=== PATIENT | male | born 1960 | race Caucasian/White ===

== ENCOUNTER 2016-09-29 16:19 | Emergency (ER) | payer MEDICARE ==
[2016-09-29 16:59] LABS: BASOPHILS 0.1 % (0.0-2.0); EOSINOPHILS 0.9 % (0-7); HEMATOCRIT 48.7 % (42.0-54.0); HEMOGLOBIN 16.6 g/dL (13.5-17.5); IMMATURE GRANULOCYTES 0.3 % (0-5); MCH 32.7 pg (26.0-34.0); MCHC 34.1 g/dL (31.0-37.0); MCV 96.1 fL (80.0-100.0); MEAN PLATELET VOLUME 9.7 fL (7.4-10.4); MONOCYTES 4.6 % (2-11); NEUTROPHILS 76.1 % (40-80); PLATELET COUNT 211 10x3/uL (130-400); RBC 5.07 10x6/uL (4.20-6.10); RDW 15.9 % (11.5-14.5); WBC 7.5 10x3/uL (4.8-10.8)
[2016-09-29 17:23] LABS: ALBUMIN 3.4 g/dL (3.4-5.0); ALKALINE PHOSPHATASE 96 U/L (46-116); ALT (SGPT) 14 U/L (10-68); BILIRUBIN - TOTAL 0.43 mg/dL (0.2-1.3); CALC OSMOLALITY 266 mosm/kg (275-300); CALCIUM 9.1 mg/dL (8.5-10.1); CARBON DIOXIDE 25.9 mmol/L (21.0-32.0); CHLORIDE - SERUM 96 mmol/L (98-107); CREATININE - SERUM 1.2 mg/dL (0.6-1.3); POTASSIUM - SERUM 4.2 mmol/L (3.5-5.1); PROTEIN - SERUM 7.4 g/dL (6.4-8.2); SODIUM 133 mmol/L (136-145); UREA NITROGEN 5 mg/dL (7-18); eGFR NON AFRICAN AMERICAN 66 mL/min (90-120)
[2016-09-29 17:31] LABS: GLUCOSE 177 mg/dL (74-106)
[2016-09-29 17:34] LABS: CHOL - HDL RATIO 5.2 ratio (2.3-4.9); CHOLESTEROL, TOTAL 165 mg/dL (0-200); CKMB 1.4 U/L (0.0-3.6); CREATINE KINASE 232 UL (21-232); HDL CHOLESTEROL 32 mg/dL (32-96); LDL CHOLESTEROL 107 mg/dL (0-100); LDL-HDL RATIO 3.3 ratio (1.5-3.5); TRIGLYCERIDE 134 mg/dL (30-200)
[2016-09-29 17:43] LABS: TROPONIN-I < 0.017 ng/mL (0.000-0.060)
== END 2016-09-29 18:15 | disposition home or self-care (01) ==
LOC: D.ER 16:19
PROVIDERS: Family Medicine
DX: R07.9 Chest pain, unspecified (principal); I10 Essential (primary) hypertension; E11.9 Type 2 diabetes mellitus without complications; F31.9 Bipolar disorder, unspecified

== ENCOUNTER 2016-10-12 09:45 | Emergency (ER) | payer MEDICARE ==
[2016-10-12 10:28] LABS: BASOPHILS 0.2 % (0.0-2.0); EOSINOPHILS 0.6 % (0-7); HEMATOCRIT 51.2 % (42.0-54.0); HEMOGLOBIN 17.7 g/dL (13.5-17.5); IMMATURE GRANULOCYTES 0.2 % (0-5); LYMPHOCYTES 13.8 % (15-50); MCH 32.8 pg (26.0-34.0); MCHC 34.6 g/dL (31.0-37.0); MEAN PLATELET VOLUME 9.4 fL (7.4-10.4); MONOCYTES 6.8 % (2-11); NEUTROPHILS 78.4 % (40-80); RBC 5.39 10x6/uL (4.20-6.10); RDW 15.5 % (11.5-14.5); WBC 12.1 10x3/uL (4.8-10.8)
[2016-10-12 10:29] LABS: PLATELET COUNT 265 10x3/uL (130-400)
[2016-10-12 10:47] LABS: ALBUMIN 3.4 g/dL (3.4-5.0); ALKALINE PHOSPHATASE 101 U/L (46-116); ALT (SGPT) 15 U/L (10-68); BILIRUBIN - TOTAL 0.47 mg/dL (0.2-1.3); CALC OSMOLALITY 262 mosm/kg (275-300); CALCIUM 9.4 mg/dL (8.5-10.1); CARBON DIOXIDE 25.3 mmol/L (21.0-32.0); CHLORIDE - SERUM 98 mmol/L (98-107); CREATININE - SERUM 1.2 mg/dL (0.6-1.3); POTASSIUM - SERUM 4.1 mmol/L (3.5-5.1); PROTEIN - SERUM 7.5 g/dL (6.4-8.2); SODIUM 132 mmol/L (136-145); UREA NITROGEN 5 mg/dL (7-18); eGFR NON AFRICAN AMERICAN 66 mL/min (90-120)
[2016-10-12 10:50] LABS: GLUCOSE 117 mg/dL (74-106)
[2016-10-12 11:03] LABS: CHOL - HDL RATIO 6.6 ratio (2.3-4.9); CHOLESTEROL, TOTAL 171 mg/dL (0-200); CREATINE KINASE 245 UL (21-232); HDL CHOLESTEROL 26 mg/dL (32-96); LDL CHOLESTEROL 94 mg/dL (0-100); LDL-HDL RATIO 3.6 ratio (1.5-3.5); TRIGLYCERIDE 258 mg/dL (30-200)
[2016-10-12 11:10] LABS: TROPONIN-I < 0.017 ng/mL (0.000-0.060)
[2016-10-12 12:01] LABS: MAGNESIUM - SERUM 1.7 mg/dL (1.8-2.4)
== END 2016-10-12 14:30 | disposition home or self-care (01) ==
LOC: D.ER 09:45
PROVIDERS: Emergency Medicine
DX: E83.42 Hypomagnesemia (principal); R07.9 Chest pain, unspecified; M51.26 Other intervertebral disc displacement, lumbar region; I10 Essential (primary) hypertension; F31.9 Bipolar disorder, unspecified; I25.810 Atherosclerosis of coronary artery bypass graft(s) without angina pectoris; F17.200 Nicotine dependence, unspecified, uncomplicated

== ENCOUNTER 2016-10-23 12:06 | Emergency (ER) | payer MEDICARE | END 2016-10-23 13:12 | disposition home or self-care (01) | LOC: D.ER 12:06 | DX: K02.9 Dental caries, unspecified (principal); K08.89 Other specified disorders of teeth and supporting structures; I25.10 Atherosclerotic heart disease of native coronary artery without angina pectoris; E11.9 Type 2 diabetes mellitus without complications; I10 Essential (primary) hypertension; E83.42 Hypomagnesemia; F17.200 Nicotine dependence, unspecified, uncomplicated ==

== ENCOUNTER 2016-10-24 06:50 | Emergency (ER) | payer MEDICARE | END 2016-10-24 07:40 | disposition home or self-care (01) | LOC: D.ER 06:50 | DX: K08.89 Other specified disorders of teeth and supporting structures (principal); E11.9 Type 2 diabetes mellitus without complications; I10 Essential (primary) hypertension; E83.42 Hypomagnesemia ==

== ENCOUNTER 2016-10-28 02:51 | Emergency (ER) | payer MEDICARE | END 2016-10-28 05:30 | disposition home or self-care (01) | LOC: D.ER 02:51 | DX: I10 Essential (primary) hypertension (principal); E11.9 Type 2 diabetes mellitus without complications; F17.200 Nicotine dependence, unspecified, uncomplicated ==

== ENCOUNTER 2016-11-21 08:08 | Emergency (ER) | payer MEDICARE | END 2016-11-21 11:18 | disposition home or self-care (01) | LOC: D.ER 08:08 | DX: L03.116 Cellulitis of left lower limb (principal); M79.672 Pain in left foot; I10 Essential (primary) hypertension ==

== ENCOUNTER 2016-12-05 10:47 | Emergency (ER) | payer MEDICARE ==
[2016-12-05 11:41] LABS: BASOPHILS 0.2 % (0.0-2.0); EOSINOPHILS 0.6 % (0-7); HEMOGLOBIN 18.9 g/dL (13.5-17.5); IMMATURE GRANULOCYTES 0.1 % (0-5); LYMPHOCYTES 18.9 % (15-50); MCH 34.4 pg (26.0-34.0); MCHC 35.7 g/dL (31.0-37.0); MCV 96.4 fL (80.0-100.0); MEAN PLATELET VOLUME 10.3 fL (7.4-10.4); MONOCYTES 7.5 % (2-11); NEUTROPHILS 72.7 % (40-80); PLATELET COUNT 229 10x3/uL (130-400); RDW 17.2 % (11.5-14.5); WBC 8.8 10x3/uL (4.8-10.8)
[2016-12-05 11:58] LABS: ALBUMIN 3.8 g/dL (3.4-5.0); ALKALINE PHOSPHATASE 135 U/L (46-116); ALT (SGPT) 22 U/L (10-68); BILIRUBIN - TOTAL 0.82 mg/dL (0.2-1.3); CALC OSMOLALITY 271 mosm/kg (275-300); CALCIUM 8.6 mg/dL (8.5-10.1); CARBON DIOXIDE 27.6 mmol/L (21.0-32.0); CHLORIDE - SERUM 99 mmol/L (98-107); GLUCOSE 109 mg/dL (74-106); POTASSIUM - SERUM 4.5 mmol/L (3.5-5.1); PROTEIN - SERUM 7.7 g/dL (6.4-8.2); SODIUM 135 mmol/L (136-145); UREA NITROGEN 15 mg/dL (7-18); eGFR NON AFRICAN AMERICAN 82 mL/min (90-120)
[2016-12-05 12:06] LABS: CKMB 1.5 U/L (0.0-3.6); CREATINE KINASE 138 UL (21-232)
[2016-12-05 12:07] LABS: TROPONIN-I < 0.017 ng/mL (0.000-0.060)
== END 2016-12-05 12:45 | disposition home or self-care (01) ==
LOC: D.ER 10:47
PROVIDERS: Family Medicine
DX: R07.9 Chest pain, unspecified (principal); I10 Essential (primary) hypertension; E11.9 Type 2 diabetes mellitus without complications; Z79.4 Long term (current) use of insulin; D45 Polycythemia vera; I25.10 Atherosclerotic heart disease of native coronary artery without angina pectoris; F41.9 Anxiety disorder, unspecified; K21.9 Gastro-esophageal reflux disease without esophagitis; F17.200 Nicotine dependence, unspecified, uncomplicated

== ENCOUNTER 2016-12-22 10:50 | Emergency (ER) | payer MEDICARE ==
[2016-12-22 12:16] LABS: BASOPHILS 0.2 % (0.0-2.0); EOSINOPHILS 0.7 % (0-7); HEMATOCRIT 52.7 % (42.0-54.0); HEMOGLOBIN 18.7 g/dL (13.5-17.5); IMMATURE GRANULOCYTES 0.2 % (0-5); LYMPHOCYTES 12.6 % (15-50); MCH 34.4 pg (26.0-34.0); MCHC 35.5 g/dL (31.0-37.0); MCV 97.1 fL (80.0-100.0); MEAN PLATELET VOLUME 9.9 fL (7.4-10.4); NEUTROPHILS 82.3 % (40-80); PLATELET COUNT 265 10x3/uL (130-400); RBC 5.43 10x6/uL (4.20-6.10); RDW 16.1 % (11.5-14.5); WBC 10.9 10x3/uL (4.8-10.8)
[2016-12-22 12:23] LABS: ALBUMIN 3.9 g/dL (3.4-5.0); ANION GAP 15.5 mmol/L (8-16); BILIRUBIN - TOTAL 0.85 mg/dL (0.2-1.3); CALCIUM 9.3 mg/dL (8.5-10.1); CARBON DIOXIDE 25.3 mmol/L (21.0-32.0); CREATININE - SERUM 1.2 mg/dL (0.6-1.3); POTASSIUM - SERUM 3.8 mmol/L (3.5-5.1); PROTEIN - SERUM 7.5 g/dL (6.4-8.2)
== END 2016-12-22 15:30 | disposition left against medical advice (07) ==
LOC: D.ER 10:50
PROVIDERS: Emergency Medicine
DX: E11.65 Type 2 diabetes mellitus with hyperglycemia (principal)

== ENCOUNTER → 2017-01-01 12:26 | Outpatient (CLI) | payer MEDICARE | END | disposition home or self-care (01) | LOC: D.RAD 12:26 | DX: R13.10 Dysphagia, unspecified (principal) ==

== ENCOUNTER 2017-01-14 21:19 | Emergency (ER) | payer MEDICARE ==
[2017-01-30 13:58] VITALS: BMI 29.3
== END 2017-01-15 00:08 | disposition home or self-care (01) ==
LOC: D.ER 21:19
DX: K04.7 Periapical abscess without sinus (principal); K08.89 Other specified disorders of teeth and supporting structures; I25.10 Atherosclerotic heart disease of native coronary artery without angina pectoris; I10 Essential (primary) hypertension; E11.9 Type 2 diabetes mellitus without complications; Z79.4 Long term (current) use of insulin; F17.200 Nicotine dependence, unspecified, uncomplicated

== ENCOUNTER 2017-01-30 12:20 | Day surgery (SDC) | payer MEDICARE ==
[~2017-01-30] VITALS: Ht 180.3 cm; Wt 95.5 kg
[2017-01-30] MEDS ORDERED: NORVASC10 MG PO (13:41)
[2017-01-30] MEDS ORDERED: NORCO 7.5/325 T1 TA1 PO (13:43)
[2017-01-30] MEDS ORDERED: ISOSORBIDE MONO30 M1 PO (13:43)
[2017-01-30] MEDS ORDERED: PROTONIX40 MG PO (13:44)
[2017-01-30] MEDS ORDERED: NEURONTIN 300300 MG PO (13:45)
[2017-01-30] MEDS ORDERED: PLAVIX75 MG PO (13:45)
[2017-01-30] MEDS ORDERED: LIPITOR40 MG PO (13:47)
[2017-01-30] MEDS ORDERED: BAYER CHEWABLE81 MG PO (13:47)
[2017-01-30 13:58] VITALS: BP 132/80; Ht 180.3 cm; Wt 95.5 kg
[2017-01-30 14:53] LABS: BASOPHILS 0.2 % (0-2); EOSINOPHILS 0.5 % (0-7); HEMATOCRIT 52.9 % (42.0-54.0); HEMOGLOBIN 18.3 g/dL (13.5-17.5); IMMATURE GRANULOCYTES 0.1 % (0-5); LYMPHOCYTES 19.5 % (15-50); MCH 34.3 pg (26.0-34.0); MCHC 34.6 g/dL (31.0-37.0); MCV 99.2 fL (80.0-100.0); MEAN PLATELET VOLUME 10.6 fL (7.4-10.4); MONOCYTES 4.8 % (2-11); NEUTROPHILS 74.9 % (40-80); PLATELET COUNT 240 10x3/uL (130-400); RBC 5.33 10x6/uL (4.20-6.10); RDW 14.3 % (11.5-14.5); WBC 8.8 10x3/uL (4.8-10.8)
[2017-01-30 15:00] LABS: CALC OSMOLALITY 274 mosm/kg (275-300); CARBON DIOXIDE 29.8 mmol/L (21.0-32.0); CHLORIDE - SERUM 101 mmol/L (98-107); CREATININE - SERUM 0.9 mg/dL (0.6-1.3); SODIUM 137 mmol/L (136-145); UREA NITROGEN 14 mg/dL (7-18); eGFR NON AFRICAN AMERICAN > 90 mL/min (90-120)
[2017-01-30 15:01] LABS: GLUCOSE 92 mg/dL (74-106)
--- NOTE | 2017-01-30 17:48 | NUR ---
8668 IV DC WITH CATHER TIP INTACT BRENDA UPSET HE DIDNT GET ANY PAIN MEDICATION STATED" I WILL NOT BE BACK FOR ANYTHING"
--- NOTE | 2017-02-03 17:25 | OP ---
PATIENT NAME: SHIMON HARO MEDICAL RECORD: [id number] :60 LOCATION:[facility] ADMISSION DATE: SURGEON: ZEE RAJPUT DO DATE OF OPERATION: 01/30/2017 PROCEDURE: EGD with biopsies. INDICATIONS FOR PROCEDURE: Dysphagia. SCOPE: Olympus video gastroscope. MEDICATIONS: Propofol 250 mg IV per anesthesia. ESTIMATED BLOOD LOSS: Minimal. FINDINGS: Informed consent was given. The patient was made comfortable with the above medication. After reaching an adequate level of sedation by slow IV push, the patient was placed on his left side. The endoscope was then advanced under direct visualization through the mouth to the second portion of the duodenum. The upper, middle, and distal thirds of the esophagus appeared normal. At the GE junction, there was some very mild reflux esophagitis grade A. The endoscope was advanced through the GE junction into the stomach and retroflexed to view the cardia which appeared normal. There was some diffuse patchy gastritis throughout the entire stomach consistent with erythema and granularity. The rugal folds were prominent, but not overly hypertrophied. Random biopsies were taken throughout every segment of the stomach and submitted for histology and to rule out H. pylori. The scope was advanced beyond the pylorus into the duodenum where there was some evidence of duodenitis in the duodenal bulb. Imaging showed erythema and granularity, but no ulcerations or erosions were visualized. Biopsies were taken in the duodenal bulb as well. The endoscope was advanced into the second portion of the duodenum, which appeared normal. The scope was withdrawn from the patient. The patient tolerated the procedure well and there were no complications. IMPRESSION: 1. Reflux esophagitis grade A. 2. Diffuse gastritis with biopsies taken. 3. Duodenitis involving the duodenal bulb, biopsies taken. PLAN AND RECOMMENDATIONS: 1. Discharge home when recovery parameters are met. 2. Continue current medications. 3. Gastroesophageal reflux disease diet and reflux precautions. 4. Barium esophagram regarding the dysphagia. 5. Follow up in GI clinic as needed. 6. The patient is already scheduled for a colonoscopy regarding his left lower quadrant abdominal pain and abnormal CT in the recent past. TRANSINT:[id number] Voice Confirmation ID: [id number] DOCUMENT ID: [id number] OPERATIVE REPORT [id number] SHIMON HARO ZEE RAJPUT DO at 1725 CC: [id number] DICTATION DATE: 01/30/17 1546 FARMWORKER MACHINE: 01/31/17 0019 [facility] 01/30/17 [facility] [address] [place] [address]
== END 2017-01-30 17:15 | disposition home or self-care (01) ==
LOC: D.OPS 12:20
PROVIDERS: Anesthesiology
DX: R13.10 Dysphagia, unspecified (principal); K29.70 Gastritis, unspecified, without bleeding; F17.200 Nicotine dependence, unspecified, uncomplicated; I25.10 Atherosclerotic heart disease of native coronary artery without angina pectoris; I10 Essential (primary) hypertension; E11.9 Type 2 diabetes mellitus without complications; J44.9 Chronic obstructive pulmonary disease, unspecified; G47.30 Sleep apnea, unspecified; Z95.5 Presence of coronary angioplasty implant and graft; K21.0 Gastro-esophageal reflux disease with esophagitis; K29.80 Duodenitis without bleeding; Z01.812 Encounter for preprocedural laboratory examination

== ENCOUNTER 2017-03-02 10:28 | Emergency (ER) | payer MEDICARE ==
[2017-01-30 13:58] VITALS: BMI 29.3
[~2017-03-02 10:28] MED LIST: BAYER CHEWABLE81 MG PO; ISOSORBIDE MONO30 M1 PO; LIPITOR40 MG PO; NEURONTIN 300300 MG PO; NORCO 7.5/325 T1 TA1 PO; NORVASC10 MG PO; PLAVIX75 MG PO; PROTONIX40 MG PO
[2017-03-02 10:52] LABS: BASOPHILS 0.2 % (0-2); EOSINOPHILS 0.5 % (0-7); HEMATOCRIT 51.2 % (42.0-54.0); HEMOGLOBIN 18.1 g/dL (13.5-17.5); IMMATURE GRANULOCYTES 0.2 % (0-5); MCH 34.5 pg (26.0-34.0); MCHC 35.4 g/dL (31.0-37.0); MCV 97.5 fL (80.0-100.0); MEAN PLATELET VOLUME 9.9 fL (7.4-10.4); MONOCYTES 2.6 % (2-11); NEUTROPHILS 84.5 % (40-80); PLATELET COUNT 241 10x3/uL (130-400); RBC 5.25 10x6/uL (4.20-6.10); RDW 13.4 % (11.5-14.5); WBC 11.7 10x3/uL (4.8-10.8)
[2017-03-02 11:13] LABS: ALBUMIN 3.5 g/dL (3.4-5.0); ALKALINE PHOSPHATASE 141 U/L (46-116); ALT (SGPT) 16 U/L (10-68); BILIRUBIN - TOTAL 0.77 mg/dL (0.2-1.3); CALCIUM 9.1 mg/dL (8.5-10.1); CHLORIDE - SERUM 100 mmol/L (98-107); CREATININE - SERUM 1.2 mg/dL (0.6-1.3); POTASSIUM - SERUM 4.4 mmol/L (3.5-5.1); PROTEIN - SERUM 7.1 g/dL (6.4-8.2); SODIUM 133 mmol/L (136-145); UREA NITROGEN 13 mg/dL (7-18); eGFR NON AFRICAN AMERICAN 66 mL/min (90-120)
[2017-03-02 11:18] LABS: CALC OSMOLALITY 268 mosm/kg (275-300); CHOL - HDL RATIO 5.8 ratio (2.3-4.9); CHOLESTEROL, TOTAL 122 mg/dL (0-200); CREATINE KINASE 128 UL (21-232); GLUCOSE 156 mg/dL (74-106); HDL CHOLESTEROL 21 mg/dL (32-96); LDL CHOLESTEROL 74 mg/dL (0-100); LDL-HDL RATIO 3.5 ratio (1.5-3.5); TRIGLYCERIDE 139 mg/dL (30-200); TROPONIN-I < 0.017 ng/mL (0.000-0.060)
== END 2017-03-02 13:17 | disposition home or self-care (01) ==
LOC: D.ER 10:28
PROVIDERS: Family Medicine
DX: R07.89 Other chest pain (principal); G89.29 Other chronic pain; F41.8 Other specified anxiety disorders; R00.1 Bradycardia, unspecified; F17.200 Nicotine dependence, unspecified, uncomplicated

== ENCOUNTER 2017-03-04 03:31 | Emergency (ER) | payer MEDICARE ==
[2017-01-30 13:58] VITALS: BMI 29.3
[2017-03-04 04:15] LABS: APPEARANCE CLEAR (CLEAR); BILIRUBIN NEGATIVE (NEGATIVE); COLOR YELLOW (YELLOW); GLUCOSE NEGATIVE (NEGATIVE); KETONE NEGATIVE (NEGATIVE); LEUKOCYTE ESTERASE TRACE (NEGATIVE); NITRITE NEGATIVE (NEGATIVE); PROTEIN 1+ mg/dL (NEGATIVE)
[2017-03-04 04:16] LABS: BACTERIA NONE SEEN /hpf (NONE SEEN); EPITHELIAL CELLS 0-5 /hpf (0-5); RED CELLS - URINE 0-5 /hpf (0-5); WHITE CELLS - URINE 0-5 /hpf (0-5)
[2017-03-04 04:22] LABS: BASOPHILS 0.2 % (0-2); EOSINOPHILS 0.3 % (0-7); HEMATOCRIT 49.2 % (42.0-54.0); HEMOGLOBIN 17.6 g/dL (13.5-17.5); IMMATURE GRANULOCYTES 0.1 % (0-5); LYMPHOCYTES 14.4 % (15-50); MCH 34.9 pg (26.0-34.0); MCHC 35.8 g/dL (31.0-37.0); MCV 97.6 fL (80.0-100.0); MONOCYTES 4.6 % (2-11); NEUTROPHILS 80.4 % (40-80); PLATELET COUNT 231 10x3/uL (130-400); RBC 5.04 10x6/uL (4.20-6.10); RDW 13.6 % (11.5-14.5); WBC 9.3 10x3/uL (4.8-10.8)
[2017-03-04 04:27] LABS: UDS - AMPHET NEGATIVE QUAL (NEGATIVE); UDS - BARB NEGATIVE QUAL (NEGATIVE); UDS - BENZO POSITIVE QUAL (NEGATIVE); UDS - COCAINE NEGATIVE QUAL (NEGATIVE); UDS - METH NEGATIVE QUAL (NEGATIVE); UDS - OPIATE POSITIVE QUAL (NEGATIVE); UDS - PCP NEGATIVE QUAL (NEGATIVE); UDS - THC POSITIVE QUAL (NEGATIVE)
[2017-03-04 04:35] LABS: ALBUMIN 3.5 g/dL (3.4-5.0); BILIRUBIN - TOTAL 0.87 mg/dL (0.2-1.3); CALCIUM 9.1 mg/dL (8.5-10.1); CARBON DIOXIDE 22.9 mmol/L (21.0-32.0); CREATININE - SERUM 1.1 mg/dL (0.6-1.3); MAGNESIUM - SERUM 1.5 mg/dL (1.8-2.4); POTASSIUM - SERUM 3.9 mmol/L (3.5-5.1); PROTEIN - SERUM 7.1 g/dL (6.4-8.2)
== END 2017-03-04 11:20 | disposition left against medical advice (07) ==
LOC: D.ER 03:31
PROVIDERS: Emergency Medicine
DX: R45.851 Suicidal ideations (principal); F41.9 Anxiety disorder, unspecified; M79.606 Pain in leg, unspecified; E11.9 Type 2 diabetes mellitus without complications; I10 Essential (primary) hypertension; Z95.5 Presence of coronary angioplasty implant and graft; F17.200 Nicotine dependence, unspecified, uncomplicated

== ENCOUNTER 2017-05-05 05:40 | Day surgery (SDC) | payer MEDICARE ==
[~2017-05-05] VITALS: Ht 175.3 cm; Wt 100.9 kg
[2017-05-05 06:12] LABS: BASOPHILS 0.2 % (0-2); HEMATOCRIT 51.2 % (42.0-54.0); HEMOGLOBIN 18.4 g/dL (13.5-17.5); IMMATURE GRANULOCYTES 0.3 % (0-5); LYMPHOCYTES 12.3 % (15-50); MCH 35.5 pg (26.0-34.0); MCHC 35.9 g/dL (31.0-37.0); MCV 98.7 fL (80.0-100.0); MEAN PLATELET VOLUME 9.9 fL (7.4-10.4); MONOCYTES 6.2 % (2-11); PLATELET COUNT 219 10x3/uL (130-400); RBC 5.19 10x6/uL (4.20-6.10); WBC 8.9 10x3/uL (4.8-10.8)
[2017-05-05] MEDS ORDERED: LITHIUM PO (06:28)
[2017-05-05] MEDS ORDERED: TOPROL XL100 MG PO (06:30)
[2017-05-05 06:31] LABS: CALC OSMOLALITY 274 mosm/kg (275-300); CALCIUM 8.7 mg/dL (8.5-10.1); CARBON DIOXIDE 28.8 mmol/L (21.0-32.0); CHLORIDE - SERUM 100 mmol/L (98-107); POTASSIUM - SERUM 4.3 mmol/L (3.5-5.1); SODIUM 138 mmol/L (136-145); UREA NITROGEN 9 mg/dL (7-18); eGFR NON AFRICAN AMERICAN 82 mL/min (90-120)
[2017-05-05] MEDS ORDERED: NITROSTAT0.4 MG SL (06:32)
[2017-05-05 06:33] LABS: GLUCOSE 100 mg/dL (74-106)
--- NOTE | 2017-05-05 06:37 | NUR ---
0667 PT STATES HE FELL THIS AM @ 0310 @ HOME. ER VISIT OFFERED AN OPTION VERSUS OUT PATIENT COLONOSCOPY THIS AM. PT STATES HE IS OKAY TO HAVE COLONOSCOPY. PT CRYING & SHAKING. Geraldo FLOOD R.N.
[2017-05-05 07:07] VITALS: BP 137/78; Ht 175.3 cm; Wt 100.9 kg
--- NOTE | 2017-05-06 16:20 | OP ---
PATIENT NAME: SHIMON HARO MEDICAL RECORD: [id number] :60 LOCATION:[facility] ADMISSION DATE: SURGEON: ZEE RAJPUT DO DATE OF OPERATION: 05/05/2017 PROCEDURE: Colonoscopy with polypectomy and biopsies. INDICATIONS FOR PROCEDURE: Left lower quadrant abdominal pain and altered bowel function. SCOPE: Luxoft video pediatric colonoscope. MEDICATIONS: Propofol 350 mg IV per anesthesia. WITHDRAWAL TIME: 20 minutes. ESTIMATED BLOOD LOSS: Minimal. COMPLICATIONS: None. FINDINGS: Informed consent was given. The patient was made comfortable with the above medication. After reaching an adequate level of sedation by slow IV push, the patient was placed on his left side. A digital rectal examination was performed and was normal. The endoscope was then advanced under direct visualization through the rectum to the terminal ileum. The scope was slowly withdrawn and mucosa was carefully examined. Prep quality was good. There were 3 polyps visualized on this examination. All 3 were located in the ascending colon and ranged in size from 3 mm to 8 mm in diameter. One polyp was completely removed and fulgurated using hot forceps. The other 2 polyps were removed using hot snare and completely retrieved. In the descending and sigmoid colon, there was evidence of moderate diverticulosis consisting of small mouth diverticula. In this location, there was a fair amount of diverticuli associated colitis with erythema located on the folds consistent with traction injury. Random biopsies were taken in the area to submit for histopathology. Retroflexion was performed in the rectum with visualization of small nonbleeding internal hemorrhoids. The endoscope was then withdrawn from the patient. The patient tolerated the procedure well and there were no complications. IMPRESSION: 1. Three polyps in the ascending colon as described above, removed using a combination of hot forceps and a hot snare. 2. Moderate diverticulosis of the descending and sigmoid colon with associated peridiverticulitis. 3. Small nonbleeding internal hemorrhoids. PLAN AND RECOMMENDATIONS: 1. Discharge home when recovery parameters are met. 2. Follow up biopsy specimen results. 3. High fiber diet. 4. Continue current medications. 5. Consider a trial of Bentyl 20 mg b.i.d. p.r.n. abdominal discomfort or pain. 6. Recall colonoscopy in 2-3 years based on the number and types of polyps removed. TRANSINT:[id number] Voice Confirmation ID: [id number] DOCUMENT ID: [id number] OPERATIVE REPORT [id number] SHIMON HARO NATHAN A DO at 1620 CC: [id number] DICTATION DATE: 05/05/17822 SURGICAL CORSETIER: 05/05/17 1233 [facility] 05/05/17 [facility] [address] [place] [id number]
== END 2017-05-05 09:30 | disposition home or self-care (01) ==
LOC: D.OPS 05:40
PROVIDERS: Internal Medicine Gastroenterology
DX: D12.2 Benign neoplasm of ascending colon (principal); K57.30 Diverticulosis of large intestine without perforation or abscess without bleeding; K64.8 Other hemorrhoids; Z01.812 Encounter for preprocedural laboratory examination

== ENCOUNTER 2017-05-14 13:20 | Emergency (ER) | payer MEDICARE ==
[2017-05-05 07:07] VITALS: BMI 32.8
[~2017-05-14 13:20] MED LIST changes: +LITHIUM PO; +NITROSTAT0.4 MG SL; +TOPROL XL100 MG PO
== END 2017-05-14 15:31 | disposition home or self-care (01) ==
LOC: D.ER 13:20
DX: S06.0X0A Concussion without loss of consciousness, initial encounter (principal); W19.XXXA Unspecified fall, initial encounter; Y93.89 Activity, other specified; Y92.019 Unspecified place in single-family (private) house as the place of occurrence of the external cause; E11.9 Type 2 diabetes mellitus without complications; Z79.4 Long term (current) use of insulin; R51 Headache; R11.2 Nausea with vomiting, unspecified

== ENCOUNTER 2017-07-09 15:01 | Observation (INO) | payer MEDICARE ==
--- NOTE | ~2017-07-09 | HEMODYNAMI ---
PATIENT:SHIMON HARO MEDICAL RECORD: [id number] : 60 [id number] ADMISSION DATE: 07/09/17 Generatedon:07/11/20179:09 Patient name: SHIMON HARO Patient #: [id number] SSN: : 1960 Date of study: 07/11/2017 Page: Of Hemodynamic Procedure Report Patient Data Patient Demographics Procedure consent was obtained First Name: SHIMON Gender: Male Last Name: ESTRELLITA : 1960 Middle Initial: YO Age: 57 year(s) Patient #: [id number] Race: Unknown Additional ID: [id number] Contact details Address: [address] [place] [address] State: [place] City: [facility] [place] [place] Zip code: [address] Past Medical History Allergies: No known allergies Admission Admission Data Admission Date: 07/09/2017 Admission Time: 16:48 Room #: D.2125 Lab Results Lab Result Date: 07/11/2017 Lab Result Time: 0:00 Biochemistry Name Units Result Min Max BUN mg/dl 14 --(--*-)-- 7 18 Creatinine mg/dl 1.3 --(---*)-- 0.6 1.3 CBC Name Units Result Min Max Hemoglobin g/dl 18.7 --(----)-* 13.5 17.5 Procedure Procedure Types Cath Procedure Diagnostic Procedure C [facility] w/Coronaries Miscellaneous Procedures Moderate Sedation up to 15 minutes Procedure Description Procedure Date Procedure Date: 07/11/2017 Procedure Start Time: 8:42 Procedure End Time: 9:08 Procedure Staff Name Function Gregorio Morin MD Performing Physician Cady Quintero RT Scrub Shannan Jenkins RN Nurse Lilliam Navarro RT Monitor Concepción Russell RT Monitor Procedure Data Cath Procedure Fluoroscopy Diagnostic fluoroscopy Total fluoroscopy Time: 3.4 time: 3.4 min min Diagnostic fluoroscopy Total fluoroscopy dose: 705 dose: 705 mGy mGy Contrast Material Contrast Material Type Amount (ml) Isovue 300 41 Entry Location Entry Primary Successful Side Size Upsize Upsize Entry Closure Succes sful Closure Location (Fr) 1 (Fr) 2 (Fr) Remarks Device Remarks Femoral Right 5 Fr Exoseal artery Estimated blood loss: 10 ml Diagnostic catheters Device Type Used For End Catheter Placement Cordis 5Fr JL 4.0 Procedure Catheter (MP) Cordis 5Fr 3DRC Catheter Procedure (MP) Diagnostic Infinity 5Fr Procedure AL 1 catheter Cordis 5Fr Pigtail Procedure Catheter (MP) Procedure Complications No complications Procedure Medications Medication Administration Route Dosage Oxygen NC 2 l/min Lidocaine 2% added to field 20 Heparin Flush Bag added to field 2 bags (1000units/500ml NS) 0.9% NaCl I.V. 100 ml/hr Versed I.V. 2 mg Fentanyl I.V. 25 mcg Hemodynamics Rest HGB: 18.7 (g/dl) Heart Rate: 71 (bpm) Pressure Samples Time Site Value (mmHg) Purpose Heart Use Rate(bpm) 8:48 AO 118/67(88) Snapshot 76 8:59 LV 137/-24,5 EDP 77 9:00 AO 119/61(88) Pullback 58 9:00 LV 117/0,5 Pullback 58 Gradients Valve Time Site 1 Site 2 Mean SEP/DFP Peak To Heart Use (mmHg) (sec/min) Peak Rate (mmHg) (bpm) Aortic 9:00 LV AO 0 10 0 58 117/0,5 119/61(88) Calculations Valve P-P Mean Valve Index Valve Source Name Gradient Area Flow (cm2) Aortic 0 0 0 0 Snapshots Pre Cath Intra NCS Post Cath Vital Signs Time Heart Resp SPO2 etCO2 NIBP (mmHg) Rhythm Pain Sedation Rate (ipm) (%) (mmHg) Status Level (bpm) 8:27:54 70 14 99 21.1 149/95(130) NSR 0 (11) 10(A) , No pain 8:32:12 67 16 98 22.6 144/82(120) NSR 0 (11) 10(A) , No pain 8:36:24 72 15 98 1.5 134/91(110) NSR 0 (11) 10(A) , No pain 8:40:33 70 14 97 0 139/88(121) NSR 0 (11) 10(A) , No pain 8:44:48 72 18 96 0 134/88(109) NSR 0 (11) 10(A) , No pain 8:49:10 76 15 97 0 129/87(112) NSR 0 (11) 10(A) , No pain 8:53:17 93 24 96 0 150/92(111) NSR 0 (11) 10(A) , No pain 8:57:33 76 21 96 0 136/86(114) NSR 0 (11) 10(A) , No pain 9:01:45 73 18 97 0 128/87(108) NSR 0 (11) 10(A) , No pain 9:05:53 71 16 97 0 139/86(108) NSR 0 (11) 10(A) , No pain Medications Time Medication Route Dose Verified Delivered Reason Notes Effec tiveness by by 8:32:23 Oxygen NC 2 Gregorio Buffie used for l/min Mikel Jenkins RN procedure MD 8:32:32 Lidocaine 2% added 20ml Gregorio Gregorio for local to vial Mikel Morin MD anesthetic field 8:32:39 Heparin Flush added 2 Gregorio Gregorio used for Bag to bags Mikel Morin MD procedure (1000units/500ml field CEDILLO NS) 8:32:48 0.9% NaCl I.V. 100 Gregorio Buffie Per ml/hr Mikel Jenkins RN physician 8:40:30 Versed I.V. 2 mg Gregorio Buffie for Mikel Jenkins RN sedation 8:40:36 Fentanyl I.V. 25 Gregorio Buffie for mcg Mikel Jenkins RN sedation Procedure Log Time Note 8:06:45 Shannan Jenkins RN sent for patient. Start room use. 8:06:48 Time tracking: Regular hours 8:06:53 Plan of Care:Hemodynamics will remain stable., Cardiac rhythm will remain stable., Comfort level will be maintained., Respiratory function will remain adequate., Patient/ family verbilizes understanding of procedure., Procedure tolerated without complication., Recovers from procedure without complications.. 8:16:47 Patient received from PCU to CCL 2 Alert and oriented. Tansferred to table in Supine position. 8:16:48 Warm blankets applied, and bakari hugger turned on for patient comfort. 8:16:48 Correct patient and procedure confirmed by team. 8:16:49 Signed procedure consent form obtained from patient. 8:16:50 ECG and BP/O2 sat monitors applied to patient. 8:16:52 Full Disclosure recording started 8:26:44 Vital chart was started 8:26:53 Baseline sample Acquired. 8:26:58 Rhythm: sinus rhythm 8:27:48 H&P Date Dictated: 07/09/2017 Within 30 days and on chart., H&P Addendum completed by physician on day of procedure. (MUST COMPLETE FOR ALL OUTPATIENTS). 8:27:49 Pre-procedure instructions explained to patient. 8:27:50 Pre-op teaching completed and patient verbalized understanding. 8:27:54 Family in patients room. 8:27:56 Patient NPO since Midnight. 8:28:09 Patient allergic to No known allergies 8:28:15 Is the patient allergic to Iodine/contrast media? No. 8:29:01 Is patient on blood thinner?Yes 8:29:12 Patient diabetic? Yes. 8:29:15 If diabetic: On Metformin? No 8:29:27 Previous problem with sedation/anesthesia? Yes GETS ANGRY 8:29:32 Snore? Yes 8:29:35 Sleep apnea? Yes 8:29:38 Deviated septum? No 8:29:42 Opens mouth fully? Yes 8:29:43 Sticks out tongue? Yes 8:30:02 Airway obstruction? Yes COPD 8:30:25 Dentures? Yes MISSING 8:30:34 Pre procedure: right dorsailis pedis pulse 1+ Palpable, but thready & weak; easily obliterated 8:30:43 IV patent on arrival in left forearm with 0.9% NaCl at KVO. 8:30:49 Patient pain scale 0/10 ?. 8:31:50 Lab Result : Creatinine 1.3 mg/dl 8:31:50 Lab Result : BUN 14 mg/dl 8:31:50 Lab Result : Hemoglobin 18.7 g/dl 8:31:57 Lab results completed and on chart. 8:32:03 Right groin area was prepped with chlora-prep and draped in sterile fashion 8:32:08 Alarms reviewed by R. N. 8:32:10 Sharps counted by scrub and verified by R.N. 8:32:23 Oxygen 2 l/min NC was administered by Shannan Jenkins RN; used for procedure; 8:32:32 Lidocaine 2% 20ml vial added to field was administered by Gregorio Morin MD; for local anesthetic; 8:32:39 Heparin Flush Bag (1000units/500ml NS) 2 bags added to field was administered by Gregorio Morin MD; used for procedure; 8:32:48 0.9% NaCl 100 ml/hr I.V. was administered by Shannan Jenkins RN; Per physician; 8:35:23 Physician paged 8:36:23 Use device set Femoral Dx 8:36:25 Tegaderm 4 x 4 opened to sterile field. 8:36:26 Acist Manifold opened to sterile field. 8:36:27 Acist Syringe opened to sterile field. 8:36:29 Acist Hand Control opened to sterile field. 8:36:30 Bag Decanter opened to sterile field. 8:36:31 Medline Cath Pack opened to sterile field. 8:36:31 Terumo 5Fr Forman Sheath opened to sterile field. 8:36:32 St Alejandro 260cm J .035 wire opened to sterile field. 8:36:33 Diagnostic Infinity 5Fr Multipack catheter opened to sterile field. 8:37:59 Physician arrived 8:38:02 --------ALL STOP TIME OUT------ 8:38:06 Final Timeout: patient, procedure, and site verified with staff and physician. All members of the team are in agreement. 8:38:10 Right groin site verified by team. 8:38:20 Physical assessment completed. ASA score P 3 - A patient with severe systemic disease as per Gregorio Morin MD. 8:38:25 Sedation plan: IV Moderate Sedation Versed, Fentanyl 8:40:30 Versed 2 mg I.V. was administered by Shannan Jenkins RN; for sedation; 8:40:36 Fentanyl 25 mcg I.V. was administered by Shannan Jenkins RN; for sedation; 8:42:39 Procedure started. 8:42:43 Local anesthetic to right femoral artery with Lidocaine 2% by Gregorio Morin MD.INITIAL ACCESS ONLY 8:44:20 Access obtained with 4Fr micropunture. 8:44:26 A 5 Fr sheath was inserted into the Right Femoral artery 8:48:30 A Cordis 5Fr JL 4.0 Catheter (MANUEL) was advanced over the wire and used for Procedure. 8:48:38 LCA angiography performed. 8:49:56 Catheter exchanged over wire. 8:50:45 A Cordis 5Fr 3DRC Catheter (MP) was advanced over the wire and used for Procedure. 8:51:53 RCA angiography performed. 8:52:53 Catheter exchanged over wire. 8:55:28 A Diagnostic Infinity 5Fr AL 1 catheter was advanced over the wire and used for Procedure. 8:57:17 SVG to Diag angiography performed. 8:57:41 Catheter exchanged over wire. 8:58:47 A Cordis 5Fr Pigtail Catheter (MP) was advanced over the wire and used for Procedure. 8:59:42 LV gram done using NAJERA 9:00:15 EF : 65 % 9:00:22 LV hemodynamics recorded. 9:00:30 Injector settings: Ml/sec: 12, Volume: 8, 9:02:10 Catheter removed. 9:02:51 Cordis 5Fr Exoseal opened to sterile field. 9:03:31 Sheath removed intact; hemostasis achieved with Exoseal to the Right Femoral artery. 9:03:34 Procedure ended.(Physican Out) 9:03:51 Fluoroscopy time 03.40 minutes. 9:03:57 Fluoroscopy dose: 705 mGy 9:03:57 Flurop Dose total: 705 9:04:05 Contrast amount:Isovue 300 41ml. 9:04:07 Sharps counted by scrub and verified by R.N. 9:04:23 Insertion/operative site no bleeding no hematoma. 9:04:49 Post-op/insertion site Right Femoral artery dressed using a 4 x 4 and Tegaderm. 9:05:00 Post right femoral artery:unchanged 9:05:14 Post procedure: right dorsailis pedis pulse 1+ Palpable, but thready & weak; easily obliterated. 9:05:18 Post-procedure physical assessment completed. ASA score P 3 - A patient with severe systemic disease as per Gregorio Morin MD. 9:05:23 Post procedure rhythm: unchanged. 9:05:31 Estimated blood loss: 10 ml 9:05:33 Post procedure instruction explained to patient.Patient verbalizes understanding. 9:05:34 Patient needs reinforcement of post procedure teaching. 9:07:44 Cook 4Fr Micropuncture (R75541) opened to sterile field. 9:08:11 Procedure and supply charges have been captured, reviewed, submitted and are correct. 9:08:15 Procedure Complication : No complications 9:08:21 Vital chart was stopped 9:08:25 See physician's report for complete and final results. 9:08:29 Report given to Med II. 9:08:32 Patient transfered to Med II with Stretcher. 9:08:38 Procedure ended. 9:08:38 Full Disclosure recording stopped 9:09:05 End room use (Document Last) Device Usage Item Name Manufacture Quantity Catalog Hospital Part Current Minimal Lot# / Number Charge Number Stock Stock Serial# Code Tegaderm 4 x 3M 1 [id number] 358171 915178 429343 5 4 Acist Acist 1 22678 872767 452952 567539 5 Manifold [employer] Acist Syringe Acist 1 67804 845167 885523 907884 20 Medical Systems [employer] Acist Hand Acist 1 65686 458703 836385 156730 5 Control GET Holding NV [employer] Bag Decanter Microtek 1 2002S 368290 61504 725730 5 Medical Inc. Medline Cath Cardinal 1 [id number] 697507 84533 880435 5 Pack Health Terumo 5Fr Terumo 1 [id number] 762900 502855 682787 [address] Alejandro 1 392637 705182 827820 708957 30 J .035 wire Diagnostic Cardinal 1 [id number] 421236 07171 673016 30 Infinity 5Fr Health Multipack catheter Cordis 5Fr JL Cardinal 1 [id number] 5 4.0 Catheter Health (MP) Cordis 5Fr Cardinal 1 291947 5 3DRC Catheter Health (MP) Diagnostic Cardinal 1 [id number] 929124 651411 919016 15 Infinity 5Fr Health AL 1 catheter Cordis 5Fr Cardinal 1 746958 5 Pigtail Health Catheter (MP) Cordis 5Fr Cardinal 1 EX500 538121 406119 136942 10 Viss Cook 4Fr [facility] 1 [id number] 860569 300010 340354 5 Micropuncture ([id number]) Signature Audit [place] Stage Time Signature Unsigned Intra-Procedure 07/11/2017 Lilliam Navarro 9:09:40 AM RT(R) Signatures Monitor : Lilliam Navarro Signature : RT Date : Time : Monitor : Concepción Signature : Counts RT Date : Time : [address] [place] [address]
[~2017-07-09 15:01] MED LIST changes: +LITHIUM CARBON300 MG PO; -LITHIUM PO; +METOPROLOL TAR100 M1 PO; -TOPROL XL100 MG PO
[2017-07-09 15:53] LABS: BASOPHILS 0.2 % (0-2); EOSINOPHILS 0.7 % (0-7); HEMATOCRIT 55.7 % (42.0-54.0); HEMOGLOBIN 19.7 g/dL (13.5-17.5); IMMATURE GRANULOCYTES 0.5 % (0-5); LYMPHOCYTES 10.2 % (15-50); MCH 37.2 pg (26.0-34.0); MCHC 35.4 g/dL (31.0-37.0); MCV 105.3 fL (80.0-100.0); MEAN PLATELET VOLUME 9.8 fL (7.4-10.4); NEUTROPHILS 84.4 % (40-80); RBC 5.29 10x6/uL (4.20-6.10); RDW 14.2 % (11.5-14.5); WBC 16.7 10x3/uL (4.8-10.8)
[2017-07-09 15:55] LABS: PLATELET COUNT 264 10x3/uL (130-400)
[2017-07-09 16:05] LABS: INR 1.06 (0.85-1.17); PROTIME 13.7 SECONDS (11.6-15.0)
[2017-07-09 16:06] LABS: APTT 27.7 SECONDS (22.8-39.4)
[2017-07-09 16:07] LABS: ALBUMIN 3.5 g/dL (3.4-5.0); ALKALINE PHOSPHATASE 114 U/L (46-116); ALT (SGPT) 44 U/L (10-68); BILIRUBIN - TOTAL 1.22 mg/dL (0.2-1.3); CALC OSMOLALITY 265 mosm/kg (275-300); CALCIUM 9.3 mg/dL (8.5-10.1); CARBON DIOXIDE 32.1 mmol/L (21.0-32.0); CHLORIDE - SERUM 95 mmol/L (98-107); CREATININE - SERUM 1.8 mg/dL (0.6-1.3); GLUCOSE 135 mg/dL (74-106); POTASSIUM - SERUM 4.1 mmol/L (3.5-5.1); PROTEIN - SERUM 7.2 g/dL (6.4-8.2); SODIUM 131 mmol/L (136-145); UREA NITROGEN 15 mg/dL (7-18); eGFR NON AFRICAN AMERICAN 41 mL/min (90-120)
[2017-07-09 16:12] LABS: TROPONIN-I < 0.017 ng/mL (0.000-0.060)
--- NOTE | 2017-07-09 17:54 | NUR ---
TRANSFER FROM ER BY STRETCHER. OREINTED TO ROOM. CALL LIGHT IN REACH. WILL CONT. PLAN OF CARE.
[2017-07-09] MEDS ORDERED: LITHIUM CARBON300 MG PO (17:59)
[2017-07-09] MEDS ORDERED: BENAZEPRIL HCL10 MG PO (18:00)
[2017-07-09] MEDS ORDERED: CELEXA20 MG PO (18:01)
[2017-07-09] MEDS ORDERED: CLEOCIN HCL150 MG (18:04)
[2017-07-09] MEDS ORDERED: HYDROCODONE-APA1 TAB PO (18:05)
[2017-07-09 18:13] LABS: CKMB 1.3 U/L (0.0-3.6); CREATINE KINASE 84 UL (21-232)
[2017-07-09 18:14] LABS: TROPONIN-I < 0.017 ng/mL (0.000-0.060)
[2017-07-09 18:17] VITALS: BP 137/68; BMI 31.8
[2017-07-09 20:35] VITALS: BP 109/75
[2017-07-09 23:35] LABS: CREATINE KINASE 76 UL (21-232); TROPONIN-I < 0.017 ng/mL (0.000-0.060)
[2017-07-10 00:31] VITALS: BP 120/69
--- NOTE | 2017-07-10 02:37 | NUR ---
LYING IN BED, WILL CONTINUE WITH PLAN OF CARE. 57 SB WITH 1ST DEGREE AVB ON TELEMETRY
[2017-07-10 04:26] LABS: BASOPHILS 0.1 % (0-2); EOSINOPHILS 0.9 % (0-7); HEMATOCRIT 53.7 % (42.0-54.0); HEMOGLOBIN 18.7 g/dL (13.5-17.5); IMMATURE GRANULOCYTES 0.3 % (0-5); LYMPHOCYTES 13.5 % (15-50); MCH 36.6 pg (26.0-34.0); MCHC 34.8 g/dL (31.0-37.0); MCV 105.1 fL (80.0-100.0); MEAN PLATELET VOLUME 9.7 fL (7.4-10.4); MONOCYTES 4.9 % (2-11); NEUTROPHILS 80.3 % (40-80); PLATELET COUNT 236 10x3/uL (130-400); RBC 5.11 10x6/uL (4.20-6.10); RDW 14.1 % (11.5-14.5); WBC 13.4 10x3/uL (4.8-10.8)
[2017-07-10 04:50] LABS: ALBUMIN 3.3 g/dL (3.4-5.0); ALKALINE PHOSPHATASE 97 U/L (46-116); CALC OSMOLALITY 270 mosm/kg (275-300); CARBON DIOXIDE 29.1 mmol/L (21.0-32.0); CHLORIDE - SERUM 100 mmol/L (98-107); CKMB 0.7 U/L (0.0-3.6); CREATINE KINASE 66 UL (21-232); GLUCOSE 129 mg/dL (74-106); POTASSIUM - SERUM 4.4 mmol/L (3.5-5.1); PROTEIN - SERUM 6.6 g/dL (6.4-8.2); SODIUM 134 mmol/L (136-145); TROPONIN-I < 0.017 ng/mL (0.000-0.060); UREA NITROGEN 14 mg/dL (7-18)
[2017-07-10 04:54] LABS: ALT (SGPT) 26 U/L (10-68); CREATININE - SERUM 1.3 mg/dL (0.6-1.3); eGFR NON AFRICAN AMERICAN 60 mL/min (90-120)
[2017-07-10 05:33] VITALS: BP 122/72
[2017-07-10 08:00] VITALS: BP 106/79
--- NOTE | 2017-07-10 09:46 | NUR ---
TELEMETRY SR. NPO FOR [facility]. CALL LIGHT IN REACH. WILL CONT. PLAN OF CARE.
[2017-07-10 10:29] VITALS: BMI 30.5
[2017-07-10 12:00] VITALS: BP 132/74
[2017-07-10 16:00] VITALS: BP 143/80
[2017-07-10 21:38] VITALS: BP 137/84
[2017-07-11 01:53] VITALS: BP 165/95
--- NOTE | 2017-07-11 02:26 | NUR ---
LYING IN BED, CALL LIGHT IN REACH. WILL CONTINUE WITH PLAN OF CARE. 81 SR WITH 1ST DEGREE AVB AND BBB ON TELEMETRY
[2017-07-11 04:16] VITALS: BP 162/90
[2017-07-11 08:03] VITALS: BP 136/79
--- NOTE | 2017-07-11 08:09 | NUR ---
PRE-OPS GIVEN. TO VETERANS' COUNSELOR BY BED.
--- NOTE | 2017-07-11 09:33 | NUR ---
BACK FROM MOLD PRESSER. VS WNL. RIGHT GROIN STABLE WITHOUT BLEEDING OR HEMATOMA NOTED. WILL MONITOR.
[2017-07-11 11:59] VITALS: BP 114/74
--- NOTE | 2017-07-11 12:00 | NUR ---
BED REST UP. GROIN STABLE.
[2017-07-11] MEDS ORDERED: ZANAFLEX4 MG PO (14:54)
--- NOTE | 2017-07-11 15:31 | NUR ---
PT STATES HE AHS ALREADY HAD A FLU AND PNEUMONIA SHOT.
--- NOTE | 2017-07-11 15:43 | NUR ---
IV AND TELEMETRY DCD. DC PLANS GIVEN. UNDERSTANDING VOICED. ESCORTED TO CAR BY W/C.
== END 2017-07-11 15:44 | disposition home or self-care (01) ==
LOC: D.ER 15:01 → D.M2 16:48 → OBSVTIME 16:48 → D.M2 16:48
PROVIDERS: Family Medicine; ADMIT Family Medicine
DX: R55 Syncope and collapse (principal); Z86.73 Personal history of transient ischemic attack (TIA), and cerebral infarction without residual deficits; I25.10 Atherosclerotic heart disease of native coronary artery without angina pectoris; Z95.1 Presence of aortocoronary bypass graft; Z95.5 Presence of coronary angioplasty implant and graft; I10 Essential (primary) hypertension; E11.40 Type 2 diabetes mellitus with diabetic neuropathy, unspecified; E78.5 Hyperlipidemia, unspecified; R51 Headache; W19.XXXA Unspecified fall, initial encounter; J44.9 Chronic obstructive pulmonary disease, unspecified; R94.31 Abnormal electrocardiogram [ECG] [EKG]

== ENCOUNTER → 2017-07-29 09:15 | Outpatient (CLI) | payer MEDICARE ==
[2017-07-10 10:29] VITALS: BMI 30.5
[~2017-07-29 09:15] MED LIST changes: +BENAZEPRIL HCL10 MG PO; +CELEXA20 MG PO; +CLEOCIN HCL150 MG; +HYDROCODONE-APA1 TAB PO; +ZANAFLEX4 MG PO
== END | disposition home or self-care (01) ==
LOC: D.US 09:15
DX: R60.0 Localized edema (principal)

== ENCOUNTER 2017-08-19 08:13 | Emergency (ER) | payer MEDICARE | END 2017-08-19 09:36 | disposition home or self-care (01) | LOC: D.ER 08:13 | DX: G89.29 Other chronic pain (principal); I10 Essential (primary) hypertension; E11.9 Type 2 diabetes mellitus without complications; Z79.4 Long term (current) use of insulin; F17.200 Nicotine dependence, unspecified, uncomplicated ==

== ENCOUNTER 2017-10-16 17:48 | Emergency (ER) | payer MEDICARE | END 2017-10-16 22:42 | disposition home or self-care (01) | LOC: D.ER 17:48 | DX: M54.16 Radiculopathy, lumbar region (principal); F17.200 Nicotine dependence, unspecified, uncomplicated; I10 Essential (primary) hypertension; E11.9 Type 2 diabetes mellitus without complications; Z79.4 Long term (current) use of insulin ==

== ENCOUNTER 2017-10-23 12:55 | Emergency (ER) | payer MEDICARE | END 2017-10-23 16:21 | disposition home or self-care (01) | LOC: D.ER 12:55 | DX: M54.5 Low back pain (principal); I10 Essential (primary) hypertension; E11.9 Type 2 diabetes mellitus without complications; Z79.4 Long term (current) use of insulin ==

== ENCOUNTER 2017-11-11 05:51 | Day surgery (SDC) | payer MEDICARE ==
[2017-11-10 14:44] LABS: HEMATOCRIT 55.5 % (42.0-54.0); HEMOGLOBIN 19.9 g/dL (13.5-17.5); MCHC 35.9 g/dL (31.0-37.0); MCV 97.7 fL (80.0-100.0); MEAN PLATELET VOLUME 9.2 fL (7.4-10.4); RBC 5.68 10x6/uL (4.20-6.10); RDW 12.8 % (11.5-14.5); WBC 14.3 10x3/uL (4.8-10.8)
[2017-11-10 14:48] LABS: ANION GAP 15.6 mmol/L (8-16); CALCIUM 9.3 mg/dL (8.5-10.1); CARBON DIOXIDE 24.9 mmol/L (21.0-32.0); CREATININE - SERUM 1.5 mg/dL (0.6-1.3); POTASSIUM - SERUM 4.5 mmol/L (3.5-5.1)
--- NOTE | ~2017-11-11 | OP ---
PATIENT NAME: SHIMON HARO MEDICAL RECORD: [id number] :60 LOCATION:[facility] ADMISSION DATE: SURGEON: KT MUSTAFA MD DATE OF OPERATION: 11/11/2017 PREOPERATIVE DIAGNOSIS: Lumbar spinal stenosis and foraminal stenosis L4-L5, left. POSTOPERATIVE DIAGNOSIS: Lumbar spinal stenosis and foraminal stenosis L4-L5, left. PROCEDURE: Lumbar laminectomy at L4-L5, left with foraminotomy with METRx retractor. SURGEON: Kt Mustafa MD DESCRIPTION AND TECHNIQUE: After induction of general endotracheal anesthesia, the patient was rolled prone on a Rojelio frame. Lumbar spine was prepped and draped in the usual sterile fashion. Fluoroscopic x-ray and spinal needle localized at L4-L5 interspace on the left side. A stab incision was created with #11 blade and a series of dilators was used to advance a METRx retractor to the L4-L5 interspace on the left side. A Midas-Canelo drill and microscope were used to perform a laminectomy, medial facetectomy, and foraminotomy at L4-L5 on the left. Hypertrophied ligamentum flavum was removed with Cloward rongeurs. Following this, the L4 and L5 nerve roots are decompressed well. Meticulous hemostasis was maintained throughout the wound. The wound was irrigated with copious amounts of Ancef irrigant solution. The fascia was closed with 2-0 Vicryl suture. Subdermal layer was closed with 3-0 Vicryl suture. The skin was closed with alison. A sterile dressing was applied to the wound. The patient was awakened in good condition and taken to recovery. All counts were reported as correct. Estimated blood loss was minimal. TRANSINT:[id number] Voice Confirmation ID: [id number] DOCUMENT ID: [id number] KT MUSTAFA MD at 0831 CC: [id number] DICTATION DATE: 11/28/17 1418 ELEPHANT TAMER: 11/28/17 1430 [facility] 11/11/17 [place] [id number]
[2017-11-11] MEDS ORDERED: NITROSTAT0.4 MG SL (09:27)
[2017-11-11] MEDS ORDERED: PROTONIX40 MG PO (09:28)
[2017-11-11] MEDS ORDERED: NEURONTIN 300300 MG PO (09:29)
[2017-11-11 09:48] VITALS: BP 141/102; BMI 32.5
== END 2017-11-11 17:00 | disposition home or self-care (01) ==
LOC: D.OPS 05:51 → D.PAN 11:00 → D.OPS 17:00
PROVIDERS: Anesthesiology
DX: M54.16 Radiculopathy, lumbar region (principal); M53.80 Other specified dorsopathies, site unspecified; F17.200 Nicotine dependence, unspecified, uncomplicated; I25.10 Atherosclerotic heart disease of native coronary artery without angina pectoris; I10 Essential (primary) hypertension; J44.9 Chronic obstructive pulmonary disease, unspecified; G47.30 Sleep apnea, unspecified; K21.9 Gastro-esophageal reflux disease without esophagitis; Z95.1 Presence of aortocoronary bypass graft; Z01.812 Encounter for preprocedural laboratory examination

== ENCOUNTER 2017-12-08 11:09 | Emergency (ER) | payer MEDICARE | END 2017-12-08 12:26 | disposition home or self-care (01) | LOC: D.ER 11:09 | DX: K02.9 Dental caries, unspecified (principal); K08.89 Other specified disorders of teeth and supporting structures; K05.10 Chronic gingivitis, plaque induced; F17.200 Nicotine dependence, unspecified, uncomplicated ==

== ENCOUNTER 2017-12-13 07:28 | Emergency (ER) | payer MEDICARE | END 2017-12-13 08:30 | disposition home or self-care (01) | LOC: D.ER 07:28 | DX: M54.5 Low back pain (principal); I10 Essential (primary) hypertension ==

== ENCOUNTER 2017-12-15 19:02 | Emergency (ER) | payer MEDICARE ==
[2017-12-15 19:50] LABS: BASOPHILS 0.3 % (0-2); EOSINOPHILS 1.2 % (0-7); HEMATOCRIT 50.9 % (42.0-54.0); HEMOGLOBIN 18.2 g/dL (13.5-17.5); IMMATURE GRANULOCYTES 0.3 % (0-5); MCH 35.1 pg (26.0-34.0); MCHC 35.8 g/dL (31.0-37.0); MCV 98.3 fL (80.0-100.0); MEAN PLATELET VOLUME 9.4 fL (7.4-10.4); MONOCYTES 4.8 % (2-11); NEUTROPHILS 72.4 % (40-80); RBC 5.18 10x6/uL (4.20-6.10); RDW 13.1 % (11.5-14.5); WBC 10.2 10x3/uL (4.8-10.8)
[2017-12-15 20:01] LABS: PLATELET COUNT 233 10x3/uL (130-400)
[2017-12-15 20:20] LABS: ALBUMIN 3.6 g/dL (3.4-5.0); ALKALINE PHOSPHATASE 116 U/L (46-116); ALT (SGPT) 37 U/L (10-68); BILIRUBIN - TOTAL 0.61 mg/dL (0.2-1.3); CALC OSMOLALITY 265 mosm/kg (275-300); CARBON DIOXIDE 26.2 mmol/L (21.0-32.0); CHLORIDE - SERUM 98 mmol/L (98-107); CREATININE - SERUM 1.1 mg/dL (0.6-1.3); GLUCOSE 119 mg/dL (74-106); POTASSIUM - SERUM 4.4 mmol/L (3.5-5.1); PROTEIN - SERUM 7.7 g/dL (6.4-8.2); SODIUM 134 mmol/L (136-145); UREA NITROGEN 5 mg/dL (7-18); eGFR NON AFRICAN AMERICAN 73 mL/min (90-120)
[2017-12-15 20:28] LABS: TROPONIN-I < 0.017 ng/mL (0.000-0.060)
[2017-12-15 20:32] LABS: INR 1.07 (0.85-1.17); PROTIME 13.5 SECONDS (11.6-15.0)
[2017-12-15 20:33] LABS: MAGNESIUM - SERUM 1.9 mg/dL (1.8-2.4)
[2017-12-15 20:34] LABS: D-DIMER-QUANTITATIVE 0.32 ug/mLFEU (0.20-0.54)
[2017-12-15 20:37] LABS: APPEARANCE CLEAR (CLEAR); BILIRUBIN NEGATIVE (NEGATIVE); COLOR YELLOW (YELLOW); GLUCOSE NEGATIVE (NEGATIVE); KETONE NEGATIVE (NEGATIVE); NITRITE NEGATIVE (NEGATIVE); PROTEIN NEGATIVE (NEGATIVE); UROBILINOGEN NORMAL (NORMAL)
[2017-12-15 20:40] LABS: UDS - AMPHET NEGATIVE QUAL (NEGATIVE); UDS - BARB NEGATIVE QUAL (NEGATIVE); UDS - BENZO NEGATIVE QUAL (NEGATIVE); UDS - COCAINE NEGATIVE QUAL (NEGATIVE); UDS - OPIATE NEGATIVE QUAL (NEGATIVE); UDS - PCP NEGATIVE QUAL (NEGATIVE); UDS - THC POSITIVE QUAL (NEGATIVE)
== END 2017-12-15 23:57 | disposition home or self-care (01) ==
LOC: D.ER 19:02
PROVIDERS: Family Medicine; Nurse Practitioner Family
DX: M51.36 Other intervertebral disc degeneration, lumbar region (principal); S39.012A Strain of muscle, fascia and tendon of lower back, initial encounter; X58.XXXA Exposure to other specified factors, initial encounter; Y93.89 Activity, other specified; Y92.89 Other specified places as the place of occurrence of the external cause; M54.32 Sciatica, left side; F41.9 Anxiety disorder, unspecified

== ENCOUNTER 2018-01-05 07:50 | Emergency (ER) | payer MEDICARE | END 2018-01-05 10:17 | disposition home or self-care (01) | LOC: D.ER 07:50 | DX: S16.1XXA Strain of muscle, fascia and tendon at neck level, initial encounter (principal); X58.XXXA Exposure to other specified factors, initial encounter; Y93.89 Activity, other specified; Y92.019 Unspecified place in single-family (private) house as the place of occurrence of the external cause; M51.36 Other intervertebral disc degeneration, lumbar region; F17.200 Nicotine dependence, unspecified, uncomplicated ==

== ENCOUNTER 2018-01-07 08:13 | Observation (INO) | payer MEDICARE ==
[~2018-01-07] VITALS: Ht 180.3 cm; Wt 95.3 kg
--- NOTE | ~2018-01-07 | CN ---
PATIENT NAME:SHIMON HARO MEDICAL RECORD: [id number] : 60 LOCATION:[facility].2308 ADMIT DATE: 01/07/18 ACCOUNT: [id number] CONSULTING PHYSICIAN: NATALIO KEATING MD REFERRING PHYSICIAN: KAYA KIRK MD DATE OF CONSULTATION: 01/08/2018 IDENTIFYING DATA: The patient is 57 years old and he was admitted to the hospital on a voluntary basis. CHIEF COMPLAINT: Overdose. HISTORY OF PRESENT ILLNESS: The patient took a large amount of lithium in a direct and deliberate attempt to kill himself. He is manic and hyperverbal, but explains to me that he did this because he has so much neck pain. He does not ask for pain medicines, but is rambling about his grandchildren, his Confucianism preacher father, and various other poorly connected things. ASSESSMENT: Bipolar disorder. PLAN: The patient is in need of acute hospitalization. He has a history of mental illness and is manic. He attempted to hurt himself and should be transitioned to a facility soon. He will be given Klonopin and Geodon to calm him in the interim. Obviously, he is going to need a long-term mood stabilizer. He was not happy with his recent experience at [facility] because the doctor wanted him to take lithium, which he apparently did not take until he decided to overdose on it. TRANSINT:[id number] Voice Confirmation ID: [id number] DOCUMENT ID: [id number] NATALIO KEATING MD at 1312 CC: [id number] DICTATION DATE: 01/08/18 1454 COLLEGE ATHLETE: 01/08/18 1514 [facility] 01/09/18 [facility] [address] [place] [address]
[2018-01-07 09:09] LABS: BASOPHILS 0.2 % (0-2); EOSINOPHILS 0.3 % (0-7); HEMATOCRIT 61.4 % (42.0-54.0); HEMOGLOBIN 22.7 g/dL (13.5-17.5); IMMATURE GRANULOCYTES 0.3 % (0-5); LYMPHOCYTES 27.5 % (15-50); MCH 35.9 pg (26.0-34.0); MEAN PLATELET VOLUME 9.9 fL (7.4-10.4); MONOCYTES 5.9 % (2-11); NEUTROPHILS 65.8 % (40-80); RBC 6.33 10x6/uL (4.20-6.10); RDW 13.9 % (11.5-14.5); WBC 13.4 10x3/uL (4.8-10.8)
[2018-01-07 09:13] LABS: PLATELET COUNT 297 10x3/uL (130-400)
[2018-01-07 09:18] LABS: LITHIUM 1.59 mmol/L (0.60-1.20); SALICYLATES 6.2 mg/dL (2.8-20.0)
[2018-01-07 09:22] LABS: ALBUMIN 4.7 g/dL (3.4-5.0); ANION GAP 19.7 mmol/L (8-16); BILIRUBIN - TOTAL 1.31 mg/dL (0.2-1.3); CALCIUM 10.9 mg/dL (8.5-10.1); CARBON DIOXIDE 21.9 mmol/L (21.0-32.0); CREATININE - SERUM 1.5 mg/dL (0.6-1.3); POTASSIUM - SERUM 4.6 mmol/L (3.5-5.1); PROTEIN - SERUM 9.3 g/dL (6.4-8.2)
[2018-01-07 09:24] LABS: MAGNESIUM - SERUM 1.9 mg/dL (1.8-2.4); PHOSPHOROUS 2.5 mg/dL (2.5-4.9)
[2018-01-07 11:53] LABS: UDS - AMPHET NEGATIVE QUAL (NEGATIVE); UDS - BARB NEGATIVE QUAL (NEGATIVE); UDS - BENZO NEGATIVE QUAL (NEGATIVE); UDS - COCAINE NEGATIVE QUAL (NEGATIVE); UDS - OPIATE NEGATIVE QUAL (NEGATIVE); UDS - PCP NEGATIVE QUAL (NEGATIVE); UDS - THC POSITIVE QUAL (NEGATIVE)
[2018-01-07 12:14] LABS: APPEARANCE CLEAR (CLEAR); BILIRUBIN NEGATIVE (NEGATIVE); COLOR YELLOW (YELLOW); GLUCOSE NEGATIVE (NEGATIVE); KETONE NEGATIVE (NEGATIVE); NITRITE NEGATIVE (NEGATIVE); PROTEIN NEGATIVE (NEGATIVE); UROBILINOGEN NORMAL (NORMAL)
[2018-01-08] VITALS (10 sets, daily range): BP systolic 142–164; BP diastolic 80–98; Ht 180.3 cm; Wt 95.3 kg
[2018-01-08 04:15] LABS: BASOPHILS 0.1 % (0-2); EOSINOPHILS 0.2 % (0-7); HEMATOCRIT 49.3 % (42.0-54.0); IMMATURE GRANULOCYTES 0.3 % (0-5); MCH 34.9 pg (26.0-34.0); MCHC 34.7 g/dL (31.0-37.0); MEAN PLATELET VOLUME 9.5 fL (7.4-10.4); MONOCYTES 5.8 % (2-11); NEUTROPHILS 79.6 % (40-80); RDW 13.7 % (11.5-14.5); WBC 13.2 10x3/uL (4.8-10.8)
[2018-01-08 04:50] LABS: BILIRUBIN - TOTAL 0.9 mg/dL (0.2-1.3); CALCIUM 8.5 mg/dL (8.5-10.1); CARBON DIOXIDE 26.3 mmol/L (21.0-32.0); CREATININE - SERUM 1.2 mg/dL (0.6-1.3); MAGNESIUM - SERUM 1.5 mg/dL (1.8-2.4)
[2018-01-08 04:54] LABS: HEMOGLOBIN 17.1 g/dL (13.5-17.5)
[2018-01-08 04:55] LABS: MCV 100.6 fL (80.0-100.0); PLATELET COUNT 178 10x3/uL (130-400)
[2018-01-08 04:57] LABS: PHOSPHOROUS 3.2 mg/dL (2.5-4.9)
[2018-01-08 04:58] LABS: ALBUMIN 3.3 g/dL (3.4-5.0); ANION GAP 11.8 mmol/L (8-16); POTASSIUM - SERUM 3.1 mmol/L (3.5-5.1); PROTEIN - SERUM 6.3 g/dL (6.4-8.2)
[2018-01-09 03:00] VITALS: BP 149/85
[2018-01-09 04:54] LABS: BASOPHILS 0.3 % (0-2); EOSINOPHILS 0.8 % (0-7); HEMATOCRIT 45.1 % (42.0-54.0); HEMOGLOBIN 15.6 g/dL (13.5-17.5); IMMATURE GRANULOCYTES 0.1 % (0-5); LYMPHOCYTES 30.4 % (15-50); MCH 34.1 pg (26.0-34.0); MCHC 34.6 g/dL (31.0-37.0); MCV 98.7 fL (80.0-100.0); MEAN PLATELET VOLUME 9.7 fL (7.4-10.4); MONOCYTES 5.2 % (2-11); NEUTROPHILS 63.2 % (40-80); PLATELET COUNT 169 10x3/uL (130-400); RBC 4.57 10x6/uL (4.20-6.10); RDW 13.5 % (11.5-14.5); WBC 7.1 10x3/uL (4.8-10.8)
[2018-01-09 05:14] LABS: ALBUMIN 3.3 g/dL (3.4-5.0); ANION GAP 13.8 mmol/L (8-16); BILIRUBIN - TOTAL 0.87 mg/dL (0.2-1.3); CALCIUM 8.8 mg/dL (8.5-10.1); CARBON DIOXIDE 23.5 mmol/L (21.0-32.0); CREATININE - SERUM 1.1 mg/dL (0.6-1.3); MAGNESIUM - SERUM 1.8 mg/dL (1.8-2.4); PHOSPHOROUS 2.8 mg/dL (2.5-4.9); POTASSIUM - SERUM 3.3 mmol/L (3.5-5.1); PROTEIN - SERUM 6.3 g/dL (6.4-8.2)
== END 2018-01-09 18:30 ==
LOC: D.ER 08:13 → D.EDHOLD 10:57 → D.ICU 10:57 → OBSVTIME 10:57 → D.EDHOLD 10:57 → D.ICU 10:57
PROVIDERS: Family Medicine
DX: T43.592A Poisoning by other antipsychotics and neuroleptics, intentional self-harm, initial encounter (principal); F17.203 Nicotine dependence unspecified, with withdrawal; E11.65 Type 2 diabetes mellitus with hyperglycemia; I25.10 Atherosclerotic heart disease of native coronary artery without angina pectoris; F31.9 Bipolar disorder, unspecified; F41.9 Anxiety disorder, unspecified; N17.9 Acute kidney failure, unspecified; D72.829 Elevated white blood cell count, unspecified; D75.1 Secondary polycythemia; G47.30 Sleep apnea, unspecified; J44.9 Chronic obstructive pulmonary disease, unspecified; Z95.5 Presence of coronary angioplasty implant and graft; Z95.1 Presence of aortocoronary bypass graft; G89.29 Other chronic pain; R94.31 Abnormal electrocardiogram [ECG] [EKG]; K02.9 Dental caries, unspecified

== ENCOUNTER 2018-01-26 14:06 | Outpatient (CLI) | payer MEDICARE ==
[~2018-01-26] VITALS: Ht 180.3 cm; Wt 95.2 kg
--- NOTE | ~2018-01-26 | OP ---
PATIENT NAME: SHIMON HARO MEDICAL RECORD: [id number] :60 LOCATION:D.M2 D.2105 ADMISSION DATE:01/26/18 SURGEON: SIM KIDD MD DATE OF OPERATION: 01/27/2018 PROCEDURE: 1. Aortofemoral runoff. 2. Abdominal aortography. 3. Four-vessel carotid and vertebral angiography. INDICATION: Claudication, peripheral vascular disease, unsteady gait, carotid vascular disease. DESCRIPTION OF PROCEDURE: After informed consent was obtained and after a detailed explanation of the risks, benefits as well as alternative therapies, the patient elected to proceed with angiogram. The right femoral area had a preexisting sheath from coronary intervention. All catheters exchanged through this sheath. FINDINGS: There was subselection of each subclavian as well as the left carotid on right side. The common internal and external carotids have mild plaquing, none greater than 20%, no flow-limiting stenosis. Vertebral artery has no significant disease. LEFT SYSTEM: The common internal and external carotids have mild plaquing, none greater than 20%. The vertebral artery has no significant disease. Abdominal aortography was performed. The catheter was pulled down for aortofemoral runoff. Abdominal aortography reveals mild abdominal irregularities, no flow-limiting stenosis. No renal artery stenosis. No dissection or aneurysm formation. RIGHT LEG: A. Iliac: The common internal and external iliacs have mild irregularities, but no flow-limiting stenosis. B. Femoral system: The common, superficial and deep femoral have eysn-zg-ockujjmv irregularities, but no flow-limiting stenosis. No stenosis greater than 40%. C. Popliteal and infrapopliteal vessels are widely patent with good thrill and runoff to the foot, although mildly diffusely diseased. LEFT LEG: A. Iliac: The common internal and external iliacs have mild irregularities, but no flow-limiting stenosis. B. Femoral system: The common, superficial and deep femoral have grya-kc-gepgxrjd irregularities, but no flow-limiting stenosis. No stenosis greater than 40%. C. Popliteal and infrapopliteal vessels are widely patent with good thrill and runoff to the foot, although mildly diffusely diseased. OVERALL IMPRESSION: No significant carotid vascular disease is present. Minimal peripheral vascular disease is present. Continue risk factor modification. TRANSINT:[id number] Voice Confirmation ID: [id number] DOCUMENT ID: [id number] OPERATIVE REPORT [id number] SHIMON HARO JEFFREY MD at 1630 CC: [id number] DICTATION DATE: 01/27/18939 DOUBLER HELPER: 01/27/18 1153 DIS IN 01/27/18 [place] [id number] [place] [id number]
--- NOTE | ~2018-01-26 | HEMODYNAMI ---
PATIENT:SHIMON HARO MEDICAL RECORD: [id number] : 60 LOCATION:[facility] D.2105 ADMISSION DATE: 01/26/18 Generatedon:01/27/20189:41 Patient name: SHIMON HARO Patient #: [id number] SSN: : 1960 Date of study: 01/27/2018 Page: Of Hemodynamic Procedure Report Patient Data Patient Demographics Procedure consent was obtained First Name: SHIMON Gender: Male Last Name: ESTRELLITA : 1960 [facility] Initial: YO Age: 57 year(s) Patient #: [id number] Race: Unknown Additional ID: [id number] Contact details Address: [address] [place] [address] State: [place] City: [facility] Zip code: [address] Past Medical History Allergies Allergen Reaction Date Comments Reported Other allergy 01/27/2018 penicillin Admission Admission Data Admission Date: 01/26/2018 Admission Time: 18:10 Room #: D.2105 Lab Results Lab Result Date: 01/27/2018 Lab Result Time: 0:00 Biochemistry Name Units Result Min Max BUN mg/dl 15 --(--*-)-- 7 18 Creatinine mg/dl 1 --(--*-)-- 0.6 1.3 CBC Name Units Result Min Max Hemoglobin g/dl 17 --(---*)-- 13.5 17.5 Procedure Procedure Types Cath Procedure Diagnostic Procedure LHC LHC w/Coronaries w/Grafts FFR/IVUS Intra-Coronary IVUS Initial Sedation Charges Moderate Sedation up to 45 minutes PCI Procedure Coronary Stent Coronary Stent Initial Peripheral Cath Diagnostic Procedure Cath Peripheral Shofn-Cucxflu-Fke-Off Four Vessel Arteriogram Procedure Description Procedure Date Procedure Date: 01/27/2018 Procedure Start Time: 9:11 Procedure End Time: 9:37 Procedure Staff Name Function Hakeem Hampton MD Performing Physician Greg Smith RN Nurse Jose Enrique Banerjee RT Scrub Kellee Sotelo RT Monitor Procedure Data Cath Procedure Fluoroscopy Diagnostic fluoroscopy Total fluoroscopy Time: 6.1 time: 6.1 min min Diagnostic fluoroscopy Total fluoroscopy dose: 609 dose: 609 mGy mGy Contrast Material Contrast Material Type Amount (ml) Isovue 300 210 Entry Location Entry Primary Successful Side Size Upsize Upsize Entry Closure Succes sful Closure Location (Fr) 1 (Fr) 2 (Fr) Remarks Device Remarks Femoral Right 5 Fr 6 Fr Exoseal artery Short Estimated blood loss: 5 ml Diagnostic catheters Device Type Used For End Catheter Placement MULTIPACK JL 4.0 5Fr Left Coronary catheter Angiography MULTIPACK 3DRC 5Fr Right Coronary catheter Angiography DIAGNOSTIC AR 2 MOD 5 Fr Multi-vessel catheter ([id number]) Angiography MULTIPACK Pigtail 5 Fr Multi-vessel catheter Angiography Procedure Complications No complications Procedure Medications Medication Administration Route Dosage Oxygen etCO2 Nasal cannula 2 l/min Heparin Flush Bag added to field 2 bags (1000units/500ml NS) 0.9% NaCl I.V. 100 ml/hr Fentanyl I.V. 50 mcg Versed I.V. 1 mg Fentanyl I.V. 50 mcg Versed I.V. 1 mg Heparin Bolus I.V. 4000 units Hemodynamics Rest HGB: 17 (g/dl) Heart Rate: 80 (bpm) Pressure Samples Time Site Value (mmHg) Purpose Heart Use Rate(bpm) 9:28 LV 89/12,17 Snapshot 78 9:28 LV 116/-4,20 Snapshot 80 Snapshots Pre Cath Intra NCS Post Cath Vital Signs Time Heart Resp SPO2 etCO2 NIBP (mmHg) Rhythm Pain Sedation Rate (ipm) (%) (mmHg) Status Level (bpm) 8:19:14 77 18 97 0 143/94(108) NSR 0 (11) 10(A) , No pain 8:23:28 73 16 99 0 145/100(120) NSR 0 (11) 10(A) , No pain 8:27:40 79 16 98 25.5 139/99(114) NSR 0 (11) 10(A) , No pain 8:31:46 69 17 98 32.3 140/97(109) NSR 0 (11) 10(A) , No pain 8:35:48 73 18 95 39.8 139/100(119) NSR 0 (11) 10(A) , No pain 8:54:40 70 17 96 29.3 148/83(130) NSR 0 (11) 10(A) , No pain 8:59:00 74 17 95 29.3 139/83(128) NSR 0 (11) 10(A) , No pain 9:03:14 75 16 98 30.8 112/85(108) NSR 0 (11) 10(A) , No pain 9:08:03 77 17 98 16.5 120/88(113) NSR 0 (11) 9(A) , No pain 9:12:09 82 16 98 33 115/87(109) NSR 0 (11) 9(A) , No pain 9:16:17 85 17 97 33.8 111/75(93) NSR 0 (11) 9(A) , No pain 9:20:19 79 17 98 36.8 121/87(107) NSR 0 (11) 9(A) , No pain 9:24:26 79 17 98 36.8 118/82(100) NSR 0 (11) 9(A) , No pain 9:28:30 82 16 98 18 126/89(105) NSR 0 (11) 9(A) , No pain 9:32:38 84 16 99 39.1 129/83(101) NSR 0 (11) 9(A) , No pain 9:36:48 84 19 100 33 133/86(112) NSR 0 (11) 9(A) , No pain Medications Time Medication Route Dose Verified Delivered Reason Notes Effectiveness by by 8:53:53 Oxygen etCO2 2 Hakeem Garza Per physician Nasal l/min Memo Smith RN cannula 8:54:06 Heparin Flush added 2 Hakeem Garza used for Bag to bags Memo Smith RN procedure (1000units/500ml field NS) 8:54:17 0.9% NaCl I.V. 100 Hakeem Sheldony Per physician ml/hr Memo Smith RN 9:04:22 Fentanyl I.V. 50 Hakeem Greg for sedation mcg Memo Smith RN 9:04:30 Versed I.V. 1 mg Hakeem Greg for sedation Memo Smith RN 9:10:13 Fentanyl I.V. 50 Hakeem Garza for sedation mcg Memo Smith RN 9:10:16 Versed I.V. 1 mg Hakeem Greg for sedation Memo Smith RN 9:20:36 Heparin Bolus I.V. 4000 Hakeem Garza for units Memo Smith RN anticoagulation Procedure Log Time Note 8:01:34 Diagnostic Cath Status : Elective 8:02:01 Jose Enrique Banerjee RT(R) (CV) sent for patient. Start room use. 8:02:02 Time tracking: Regular hours (M-F 7:00 - 5:00) 8:02:06 Plan of Care:Hemodynamics will remain stable., Cardiac rhythm will remain stable., Comfort level will be maintained., Respiratory function will remain adequate., Patient/ family verbilizes understanding of procedure., Procedure tolerated without complication., Recovers from procedure without complications.. 8:18:00 Patient received from Med II to CCL 2 Alert and oriented. Tansferred to table in Supine position. 8:18:01 Warm blankets applied, and bakari hugger turned on for patient comfort. 8:18:01 Correct patient and procedure confirmed by team. 8:18:03 Signed procedure consent form obtained from patient. 8:18:04 ECG and BP/O2 sat monitors applied to patient. 8:18:04 Vital chart was started 8:27:20 Baseline sample Acquired. 8:27:28 Rhythm: sinus rhythm 8:27:30 Full Disclosure recording started 8:27:34 H&P Date Dictated: 01/27/2018 New H&P dictated by physician.. 8:27:35 Pre-procedure instructions explained to patient. 8:27:36 Pre-op teaching completed and patient verbalized understanding. 8:27:38 Family unavailable. 8:27:40 Patient NPO since Midnight. 8:27:52 Patient allergic to Other allergypenicillin 8:27:55 Is the patient allergic to Iodine/contrast media? No. 8:27:56 Was the patient premedicated? No 8:27:58 Is patient on blood thinner?Yes 8:28:00 ACC The patient was administered the following blood thiners within the last 24 hours: ACCPlavix 8:28:02 Patient diabetic? No. 8:28:04 Previous problem with sedation/anesthesia? No ? 8:30:09 Snore? Yes 8:30:10 Sleep apnea? Yes 8:30:11 Deviated septum? No 8:30:11 Opens mouth fully? Yes 8:30:12 Sticks out tongue? Yes 8:30:14 Airway obstruction? No ? 8:30:17 Dentures? No ? 8:31:37 Pre procedure: right dorsailis pedis pulse 1+ Palpable, but thready & weak; easily obliterated 8:31:39 Pre procedure: left dorsailis pedis pulse 1+ Palpable, but thready & weak; easily obliterated 8:31:43 Patient pain scale 0/10 ?. 8:31:52 IV patent on arrival in left forearm with 0.9% NaCl at [facility]. 8:31:55 Lab results completed and on chart. 8:32:01 Bilateral groins area was prepped with chlora-prep and draped in sterile fashion 8:32:01 Alarms reviewed by R. N. 8:32:02 Sharps counted by scrub and verified by R.N. 8:37:15 Zero performed for pressure channel P1 8:40:44 Lab Result : BUN 15 mg/dl 8:40:44 Lab Result : Creatinine 1 mg/dl 8:40:44 Lab Result : Hemoglobin 17 g/dl 8:40:49 Physician arrived 8:40:49 --------ALL STOP TIME OUT------ 8:40:50 Final Timeout: patient, procedure, and site verified with staff and physician. All members of the team are in agreement. 8:40:52 Bilateral groins site verified by team. 8:40:55 Physical assessment completed. ASA score P 2 - A patient with mild systemic disease as per Hakeem Hampton MD. 8:40:59 Sedation plan: IV Moderate Sedation Medication:Versed, Fentanyl 8:41:48 Use device set Femoral Dx 8:41:49 ACIST Syringe (93954) opened to sterile field. 8:41:49 Bag Decanter (2002) opened to sterile field. 8:41:50 Medline Cath Pack ([id number]) opened to sterile field. 8:41:50 DIAGNOSTIC WIRE .035 260cm J wire (075619) opened to sterile field. 8:41:52 ACIST Hand Control (20701) opened to sterile field. 8:41:52 ACIST Manifold (95372) opened to sterile field. 8:41:52 DIAGNOSTIC Multipack 5Fr catheter set (TR7293) opened to sterile field. 8:41:53 Tegaderm 4 x 4 (1626W) opened to sterile field. 8:41:56 SHEATH Prelude 5Fr 0.035 (MBB-4D-97-035) opened to sterile field. 8:53:53 Oxygen 2 l/min etCO2 Nasal cannula was administered by Greg Smith RN; Per physician; 8:54:06 Heparin Flush Bag (1000units/500ml NS) 2 bags added to field was administered by Greg Smith RN; used for procedure; 8:54:17 0.9% NaCl 100 ml/hr I.V. was administered by Greg Smith RN; Per physician; 9:04:22 Fentanyl 50 mcg I.V. was administered by Greg Smith RN; for sedation; 9:04:30 Versed 1 mg I.V. was administered by Greg Smith RN; for sedation; 9:10:13 Fentanyl 50 mcg I.V. was administered by Greg Smith RN; for sedation; 9:10:16 Versed 1 mg I.V. was administered by Greg Smith RN; for sedation; 9:11:04 Procedure started. 9:11:08 Local anesthetic to right femoral artery with Lidocaine 2% by Hakeem Hampton MD.INITIAL ACCESS ONLY 9:11:18 A 5 Fr sheath was inserted into the Right Femoral artery 9:12:26 A MULTIPACK JL 4.0 5Fr catheter was advanced over the wire and used for Left Coronary Angiography. 9:12:39 LCA angiography performed. 9:12:42 Injector settings: Ml/sec: 3, Volume: 6, 9:14:19 Catheter removed. 9:14:24 A MULTIPACK 3DRC 5Fr catheter was advanced over the wire and used for Right Coronary Angiography. 9:14:46 RCA angiography performed. 9:14:52 Injector settings: Ml/sec: 3, Volume: 6, 9:16:21 occluded graft seen 9:16:29 Bilateral carotid angiography performed. 9:18:17 GRULLON angiography performed. 9:18:43 Catheter removed. 9:19:05 A DIAGNOSTIC AR 2 MOD 5 Fr catheter (092322M) was advanced over the wire and used for Multi-vessel Angiography. 9:19:13 SVG to Circ occluded. 9:19:26 Catheter removed. 9:19:27 Proceeding to intervention. 9:20:04 GUIDE 6FR XBLAD 3.5 catheter ([id number]) opened to sterile field. 9:20:04 CHOICE PT Extra Support 182cm wire (8462908N7) opened to sterile field. 9:20:05 INFLATOR Merit BasixCompak (ZR5479) opened to sterile field. 9:20:06 SHEATH 6Fr Prelude ([id number]) opened to sterile field. 9:20:12 Hanna [place] IVUS Catheter (60311Y) opened to sterile field. 9:20:24 Sheath upsized to a 6 Fr Short. 9:20:31 6 Fr xblad 3.5 guide catheter was inserted over the wire 9:20:36 Heparin Bolus 4000 units I.V. was administered by Greg Smith RN; for anticoagulation; 9:20:36 choice pt wire advanced. 9:20:38 Wire advanced across lesion. 9:20:39 IVUS catheter advanced over wire. 9:23:38 IVUS pass to LAD lesion performed. 9:23:40 IVUS catheter removed over wire. 9:27:15 Place stent Inflation Number: 1 A INTEGRITY RX 3.5 x 26 stent ([id number]) was prepped and advanced across the Prox LAD. The stent was deployed at 15 CLYDE for 0:10 (min:sec). 9:27:48 Stent catheter was removed intact over wire. 9:27:50 Wire removed. 9:27:51 Guide catheter removed. 9:28:04 A MULTIPACK Pigtail 5 Fr catheter was advanced over the wire and used for Multi-vessel Angiography. 9:28:51 LV hemodynamics recorded. 9:28:52 LV gram done using NAJERA 9:28:55 Injector settings: Ml/sec: 5, Volume: 15, 9:29:01 EF : 40 % 9:30:19 Abdominal angiogram w/ runoff was performed. 9:32:23 Injector settings: Ml/sec: 10, Volume: 20, 9:32:32 Catheter removed. 9:33:08 EXOSEAL 6Fr (EX600) opened to sterile field. 9:34:43 Sheath removed intact; hemostasis achieved with Exoseal to the Right Femoral artery. 9:34:45 Procedure ended.(Physican Out) 9:34:54 Fluoroscopy time 06.10 minutes. 9:34:59 Flurop Dose total: 609 9:34:59 Fluoroscopy dose: 609 mGy 9:35:05 Contrast amount:Isovue 300 210ml. 9:35:06 Sharps counted by scrub and verified by R.N. 9:35:08 Insertion/operative site no bleeding no hematoma. 9:35:10 Post-op/insertion site Right Femoral artery dressed using a 4 x 4 and Tegaderm. 9:35:13 Post right femoral artery:stable 9:35:14 Post Procedure Pulses reassessed and unchanged 9:35:17 Post procedure rhythm: unchanged. 9:35:19 Estimated blood loss: 5 ml 9:35:21 Post procedure instruction explained to patient.Patient verbalizes understanding. 9:35:21 Patient needs reinforcement of post procedure teaching. 9:37:28 Procedure type changed to Cath procedure, Diagnostic procedure, LHC, LHC w/Coronaries w/Grafts, FFR/IVUS, Intra-Coronary IVUS Initial, Sedation Charges, Moderate Sedation up to 45 minutes, PCI procedure, Coronary Stent, Coronary Stent Initial, Peripheral Cath Diagnostic Procedure, Cath Peripheral, Bligf-Ncnftam-Zli-Off, Four Vessel Arteriogram 9:37:30 Procedure and supply charges have been captured, reviewed, submitted and are correct. 9:37:39 Procedure Complication : No complications 9:37:41 Vital chart was stopped 9:37:42 See physician's report for complete and final results. 9:37:46 Report given to [facility]. 9:37:48 Patient transfered to [facility] with Stretcher. 9:37:52 Procedure ended. 9:37:52 Full Disclosure recording stopped 9:38:05 ACC-PCI Only Patient was given prescriptions, or instructed by Hakeem Hampton MD to start/continue the following medications upon discharge: Plavix 9:38:06 End room use (Document Last) Intervention Summary Intervention Notes Time ActionType Lesion and Equipment Action# Pressure Duration Attributes Used 9:27:15 Place stent Prox LAD INTEGRITY RX 1 15 00:10 3.5 x 26 stent ([id number]) Device Usage Item Name Manufacture Quantity Catalog Number Hospital Part Current M inimal Lot# / Charge Number Stock Stock Serial# Code ACIST Syringe Acist 1 59764 859138 996037 554088 2 0 (69727) [employer] Bag Decanter Microtek 1 729492 36032 682890 5 () Medical Inc. Medline Cath Cardinal 1 [id number] 439807 42848 320644 5 Tunesat Health ([id number]) DIAGNOSTIC WIRE St Alejandro 1 478732 409090 200346 124616 3 0 .035 260cm J wire (314186) ACIST Hand Acist 1 52745 406318 429052 238527 5 Control (01768) Medical Systems Inc ACIST Manifold Acist 1 20317 959810 999765 563370 5 (31390) Medical Systems Inc DIAGNOSTIC Cardinal 1 FK4533 513787 71397 475185 3 0 Multipack 5Fr Health catheter set (XL1401) Tegaderm 4 x 4 3M 1 1626W 803830 193743 832771 5 (1626W) SHEATH Prelude Merit 1 DSG-7G-72-035 137507 594711 016802 5 5Fr 0.035 Medical (DVY-2P-80-035) MULTIPACK JL Cardinal 1 412154 5 4.0 5Fr Health catheter MULTIPACK 3DRC Cardinal 1 327424 5 5Fr catheter Health DIAGNOSTIC AR 2 Cardinal 1 [id number] 088755 516254 196530 2 0 MOD 5 Fr Health catheter (413197M) GUIDE 6FR XBLAD Cardinal 1 [id number] 253203 404600 448398 1 0 3.5 catheter [place] (95679205) CHOICE PT Extra [place] 1 [id number] 746274 194599 338874 5 Support 182cm Scientific wire (8690298T3) INFLATOR Merit Merit 1 [id number] 684564 174438 628719 1 5 BasixCompak Medical (JF8873) SHEATH 6Fr Merit 1 [id number] 108082 851279 379894 5 Prelude Medical ([id number]) Hanna Hanna 1 59379W 765312 642510 882095 8 [place] IVUS Catheter (99421B) INTEGRITY RX Medtronic 1 [id number] 336286 939798 788505 5 [id number] 3.5 x 26 stent ([id number]) MULTIPACK Cardinal 1 136946 5 Pigtail 5 Fr Health catheter EXOSEAL 6Fr Cardinal 1 EX600 189731 827262 956577 1 0 (EX600) Health Signature Audit [place] Stage Time Signature Unsigned Intra-Procedure 01/27/2018 Kellee Sotelo 9:41:03 AM RT(R) Signatures Monitor : Kellee Sotelo RT Signature : Date : Time : [place] [id number] [place] [address]
--- NOTE | ~2018-01-26 | HP ---
PATIENT: SHIMON HARO MEDICAL RECORD: [id number] ACCOUNT: [id number] LOCATION:D. D.2105 : 60 ADMISSION DATE: 01/26/18 HISTORY AND PHYSICAL EXAMINATION DIAGNOSES: 1. Unstable angina. 2. Coronary artery disease. 3. Previous coronary artery bypass graft surgery. 4. Previous multivessel PTCA stent. 5. Claudication. 6. Peripheral vascular disease. 7. Previous peripheral intervention. 8. Carotid vascular disease. 9. Unsteady gait. 10. Hypertension. 11. Hyperlipidemia. HISTORY OF PRESENT ILLNESS: Mr. Haro presents with 2 weeks of increasing chest pain compatible with angina. His last cardiac stent was approximately 3 years ago. He has had multiple leg stents. He has claudication, left leg greater than right. He as well has been told he has carotid disease. He has been undergoing neurosurgical procedures for chronic pain in his neck, but he as well is having more of an unsteady gait. PHYSICAL EXAMINATION: GENERAL APPEARANCE: Well-nourished, well-developed, appears stated age. Level of distress, comfortable. PSYCHIATRIC: Mental status, alert, normal affect. Orientation, oriented to time, place and person. EYES: Lids and conjunctiva, noninjected. No discharge, no pallor. ENT: Lips, teeth, gums, normal dentition. Oropharynx, no cyanosis, no pallor. NECK: Carotid arteries, bilateral normal upstroke, no bruits, no thrills. JUGULAR VEINS: No jugular venous pressure or distention. CERVICAL LYMPH NODES: Nontender, nonenlarged. THYROID: Not enlarged. Nontender. No nodules. LUNGS: Respiratory effort, unlabored. CHEST: Normal curvature. No thoracic deformity. No chest wall tenderness. Percussion, resonant. Auscultation, clear. No wheezes, no rales, no rhonchi. CARDIOVASCULAR: Precordial exam, nondisplaced. No heaves or pericardial thrills. Rate and rhythm, regular. Heart sounds, normal S1, normal S2. No S3, no gallop, no rub. Systolic murmur, not heard. Diastolic murmur, not heard. EXTREMITIES: No cyanosis, no edema. Peripheral pulses, full and equal in all extremities, except as noted. No bruits appreciated. ABDOMEN: Soft, nondistended. Normal aorta. No bruit. Nontender. No masses. Liver, nontender, no hepatomegaly. Spleen, nontender, no splenomegaly. MUSCULOSKELETAL: No joint tenderness. No joint swelling. No erythema. NEUROLOGICAL: Normal gait, normal strength, normal tone. SKIN: Warm and dry. REVIEW OF SYSTEMS: The patient reports easy bruising but reports no swollen glands. The patient reports no fever, no night sweats, no significant weight gain, no significant weight loss. No significant exercise tolerance. The patient reports no dry eyes, no irritation, no vision change. Patient reports no difficulty hearing and no ear pain. Patient reports no frequent nose bleeds HISTORY AND PHYSICAL [id number] ESTRELLITA,SHIMON YO or nose and sinus problems. Patient reports on arm pain on exertion. No shortness of breath while lying down. No history of heart murmur. Patient reports no cough, no wheezing or coughing up blood. Patient reports no abdominal pain, no vomiting. Normal appetite. No diarrhea and not vomiting blood. No nausea and no constipation. Patient reports no incontinence. No difficulty urinating. No hematuria. No increased frequency. Patient reports no muscle aches. No weakness, no arthralgias, no back pain. No swelling of the extremities. Patient reports no abnormal mole, no jaundice, no rashes. Reports no loss of consciousness. No weakness and no numbness. No seizures, dizziness, or headaches. The patient reports no depression, no sleep disturbance, feeling safe in a relationship and no alcohol abuse. Patient reports on fatigue. Reports no runny nose or sinus pressure. No itching, no hives, and no frequent sneezing. OVERALL IMPRESSION: Multi-segmental level vessel disease, cardiac, carotid, and peripheral. We will proceed with coronary angiography, aortofemoral runoff, and carotid angiography. Further care depends upon the findings of these studies. TRANSINT:[id number] Voice Confirmation ID: [id number] DOCUMENT ID: [id number] SIM KIDD MD at 1630 CC: [id number] DICTATION DATE: 01/26/18 1601 FLEET TECHNICIAN: 01/26/18 1650 DIS IN 01/27/18 [facility] [address] [place] [address]
--- NOTE | ~2018-01-26 | DS ---
PATIENT:SHIMON HARO :60 MEDICAL RECORD: [id number] DISCHARGE SUMMARY ADMISSION DATE: 01/26/18 DISCHARGE DATE: 01/27/18 DATE OF DISCHARGE: 01/27/2018. DIAGNOSES: 1. Unstable angina. 2. Coronary artery disease. 3. Percutaneous transluminal coronary angioplasty stent left anterior descending this admission. 4. Claudication. 5. Peripheral vascular disease. 6. Hypertension. 7. Hyperlipidemia. HOSPITAL COURSE: Mr. Haro presents with unstable angina, found to have significant disease of the LAD, underwent successful PTCA stent of the LAD. Discharged home with the addition of aspirin and Plavix to his medical regimen. He will follow up with [facility] in 1 month. TRANSINT:[id number] Voice Confirmation ID: [id number] DOCUMENT ID: [id number] SIM KIDD MD at 1630 CC: [id number] DICTATION DATE: 01/27/18 0937 LOGISTICS CLERK: 01/27/18 1411 DIS IN 01/27/18 [place] [id number] [place] [id number]
--- NOTE | ~2018-01-26 | OP ---
PATIENT NAME: SHIMON HARO MEDICAL RECORD: [id number] :60 LOCATION:D.M2 D.2105 ADMISSION DATE:01/26/18 SURGEON: SIM KIDD MD DATE OF OPERATION: 01/27/2018 PROCEDURES: 1. PTCA stent LAD. 2. Left heart catheterization. 3. Selective coronary angiography. 4. Left ventriculogram. 5. Intravascular ultrasound. INDICATION: Unstable angina and coronary artery disease. PROCEDURE IN DETAIL: After informed consent was obtained and after detailed explanation of the risks, benefits as well as alternative therapies, the patient elected to proceed angiogram and angioplasty. The right femoral area is prepped and draped in normal sterile fashion. Right femoral artery was cannulated via modified Seldinger technique with placement of 6-Luxembourgish sheath. All catheters exchanged through this sheath. FINDINGS: The left ventriculogram performed in standard 30-degree NAJERA view reveals global hypokinesis. Overall ejection fraction estimated 40%. SELECTIVE CORONARY ANGIOGRAPHY: 1. Left main is with no significant angiographic disease. 2. Left anterior descending has greater than 80% stenosis throughout the proximal vessel confirmed by intravascular ultrasound. 3. Left circumflex has oonb-he-hfuaikfk irregularities, but no flow-limiting stenosis. 4. Right coronary is chronically totally occluded. 5. All grafts are closed including for vein graft to the third, vein graft to the right and GRULLON. PTCA STENT OF THE LAD: The stent used was a 3.5 x 26 mm Integrity. Result was 0% residual stenosis. OVERALL IMPRESSION: Successful percutaneous transluminal coronary angioplasty stent of the left anterior descending going from 80% initial stenosis to 0% residual stenosis. TRANSINT:[id number] Voice Confirmation ID: [id number] DOCUMENT ID: [id number] SIM KIDD MD at 1630 CC: [id number] DICTATION DATE: 01/27/18 0940 CHIEF DRAFTER: 01/27/18 1143 DIS IN 01/27/18 [facility] [address] [place] [address]
[2018-01-26 14:40] LABS: BASOPHILS 0.3 % (0-2); EOSINOPHILS 0.5 % (0-7); HEMATOCRIT 47.2 % (42.0-54.0); IMMATURE GRANULOCYTES 0.1 % (0-5); LYMPHOCYTES 21.7 % (15-50); MCH 35.1 pg (26.0-34.0); MCV 97.3 fL (80.0-100.0); MONOCYTES 6.4 % (2-11); RBC 4.85 10x6/uL (4.20-6.10); RDW 13.1 % (11.5-14.5); WBC 7.9 10x3/uL (4.8-10.8)
[2018-01-26 14:43] LABS: PLATELET COUNT 313 10x3/uL (130-400)
[2018-01-26 15:15] LABS: ALBUMIN 3.3 g/dL (3.4-5.0); ALKALINE PHOSPHATASE 120 U/L (46-116); ALT (SGPT) 23 U/L (10-68); CALC OSMOLALITY 275 mosm/kg (275-300); CALCIUM 9.2 mg/dL (8.5-10.1); CARBON DIOXIDE 24.7 mmol/L (21.0-32.0); CHLORIDE - SERUM 100 mmol/L (98-107); POTASSIUM - SERUM 4.1 mmol/L (3.5-5.1); PROTEIN - SERUM 7.5 g/dL (6.4-8.2); SODIUM 136 mmol/L (136-145); UREA NITROGEN 15 mg/dL (7-18); eGFR NON AFRICAN AMERICAN 82 mL/min (90-120)
[2018-01-26 15:18] LABS: GLUCOSE 159 mg/dL (74-106)
[2018-01-26 15:21] LABS: CHOL - HDL RATIO 5.9 ratio (2.3-4.9); CHOLESTEROL, TOTAL 189 mg/dL (0-200); CKMB 0.6 U/L (0.0-3.6); CREATINE KINASE 84 UL (21-232); HDL CHOLESTEROL 32 mg/dL (32-96); LDL CHOLESTEROL 115 mg/dL (0-100); LDL-HDL RATIO 3.6 ratio (1.5-3.5); TRIGLYCERIDE 210 mg/dL (30-200); TROPONIN-I < 0.017 ng/mL (0.000-0.060)
[2018-01-26] MEDS ORDERED: NIFEDIPINE ER30 MG PO (21:52)
[2018-01-26] MEDS ORDERED: LISINOPRIL10 MG PO (21:52)
[2018-01-26] MEDS ORDERED: DEPAKOTE ER500 MG PO (21:52)
[2018-01-26] MEDS ORDERED: LITHIUM CARBON300 MG PO (21:53)
[2018-01-27] VITALS: BP 168/105
[2018-01-27 04:40] VITALS: Ht 180.3 cm; Wt 95.2 kg
[2018-01-27 05:20] VITALS: BP 134/94
[2018-01-27 12:22] VITALS: BP 146/95
[2018-01-27] MEDS ORDERED: PLAVIX75 MG PO (14:00)
[2018-01-27] MEDS ORDERED: ASPIRIN81 MG PO (14:01)
== END 2018-01-27 16:14 | disposition home or self-care (01) ==
LOC: OBSVTIME → D.ER 14:06 → D.CATH 14:06 → D.ER 14:06 → D.M2 18:10 → D.EDHOLD 18:10 → OBSVTIME 18:11 → D.EDHOLD 20:21 → D.M2 20:21 → EDSTATUS 01-27 11:00 → D.CATH 01-27 16:14 → D.M2 01-27 16:14
PROVIDERS: Family Medicine
DX: I25.110 Atherosclerotic heart disease of native coronary artery with unstable angina pectoris (principal); Z95.1 Presence of aortocoronary bypass graft; Z95.5 Presence of coronary angioplasty implant and graft; R26.81 Unsteadiness on feet; I70.219 Atherosclerosis of native arteries of extremities with intermittent claudication, unspecified extremity; I10 Essential (primary) hypertension; E78.5 Hyperlipidemia, unspecified; Z01.812 Encounter for preprocedural laboratory examination

== ENCOUNTER 2018-05-10 17:08 | Observation (INO) | payer MEDICARE ==
[~2018-05-10] VITALS: Ht 180.3 cm; Wt 101.4 kg
--- NOTE | ~2018-05-10 | HP ---
PATIENT: SHIMON HARO MEDICAL RECORD: [id number] ACCOUNT: [id number] LOCATION:[address] : 60 ADMISSION DATE: 05/10/18 HISTORY AND PHYSICAL EXAMINATION REASON FOR ADMISSION: Neck and chest pain. HISTORY OF PRESENT ILLNESS: The patient is a 58-year-old male with no local medical doctor. He has seen Dr. Rivera in the past and has seen Dr. Hampton for cardiovascular issues. The patient states that he has been having significant trouble with cervicalgia and lumbago. He has seen Dr. Mustafa on several occasions, apparently had epidural steroid injections without improvement. He had a lumbar decompression, he states earlier in the year, but his neck pain has not improved. He has [facility], Dr. Mustafa's office and those results are not available to me currently; however, the patient says Dr. Mustafa told him that he would refer him to someone else because he cannot operate. The patient states he came to the ER mainly because his neck pain that radiates into his left upper chest became worse. He said his pain is totally unlike his previous "heart attack" chest pain. It does radiate to his left arm, but also left leg. PAST MEDICAL COURSE: He was admitted for syncope 07/08; history of diet controlled diabetes mellitus type 2; essential hypertension; the patient states he has had 10 MIs and 14 stents; has CABG, peripheral vascular disease post stents, times 3 in his right lower extremity; COPD; polycythemia; history of anxiety; bipolar depression where he has been hospitalized, seen by Dr. Faulkner; been suicidal ideation in the past, hospitalized at [facility] psych unit as well as here locally. A lithium overdose 01/07/2018 with acute kidney injury that was resolved; history of nicotine dependence. Dental caries, chronic pain syndrome with cervical and lumbar disc disease, history of TIA. PAST SURGICAL HISTORY: Cholecystectomy, lumbar discectomy CABG. He has had surgery on his left eye times 2. He had cardiac catheterization on June [address] Morin showing diffuse coronary artery disease with 1 of 3 bypass grafts patent, preserved LV function, 20% left main, 40% mid LAD and distal, 100% proximal stenosis of the RCA with left to right collaterals, and a 60% to 70% stenosis of the saphenous vein graft to the diagonal branch. Cardiac catheterization in January 2018 for unstable angina, resulted in successful PTCA of the LAD. ALLERGIES: PENICILLIN. FAMILY HISTORY: Positive for cardiovascular disease, diabetes and cancer in his parents. One sibling with cancer, unknown type. SOCIAL HISTORY: He said he smokes a little bit, smoked a little marijuana. Does not drink alcohol. CURRENT MEDICATIONS: Tizanidine 4 mg p.o. every 8 hours p.r.n. muscle spasm, Plavix 75 mg p.o. daily, Lopressor 100 mg p.o. b.i.d., lisinopril 40 mg a day, Depakote ER 500 mg p.o. daily, buspirone 15 mg p.o. b.i.d., melatonin 15 mg p.o. at bedtime p.r.n. sleep. REVIEW OF SYSTEMS: GENERAL: He has denies any recent weight loss, fever or fatigue. HISTORY AND PHYSICAL [id number] ESTRELLITA,SHIMON RAM HEENT: No recent visual change, sinus congestion, or sore throat. RESPIRATORY: Has mild HOBSON, but no sputum production. Denies shortness of breath with chest pain. CARDIAC: Denies exertional chest pain. He states that one of his neck and shoulder is bothering him. He will have pain radiating from his left lower cervical spine through his shoulder into his left anterior chest wall and left arm. He feels unlike his previous angina. MUSCULOSKELETAL: Chronic arthralgias with limited range of motion of the cervical spine with radiation to his upper back, left arm lumbago with left leg discomfort as well. 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 GASTROINTESTINAL: Complains of being bloated at times, but sometimes will have loose stool, but no constipation. No blood per rectum. GENITOURINARY: Nocturia once nightly. ENDOCRINE: Denies polyuria, polydipsia, heat or cold intolerance. NEUROLOGIC: History of remote TIA. No history of stroke or seizures. PSYCHIATRIC: The patient has history of bipolar illness, but he is not had any hallucinosis currently and is not suicidal. Does need something to help with his pain and neurosurgical issues. INTEGUMENT: No rash or itching. PHYSICAL EXAMINATION: VITAL SIGNS: Blood pressure 112/76, sats 90% on room air, heart rate 66, respirations are 18, temperature 97.1. GENERAL: The patient is agitated and alert, somewhat tearful. HEENT: Eyes are clear. Oropharynx shows poor dentition with multiple missing teeth. NECK: Shows limited range of motion. He has no carotid bruits. No masses were felt. RESPIRATORY: Faint wheezes on forced expiration bilaterally. Chest wall is tender to palpation over the sternum. HEART: Regular rate without murmur. PMI appropriate. ABDOMEN: Mildly obese, soft, nontender. No organomegaly or bruits noted. GENITOURINARY: Deferred. EXTREMITIES: No CC&E. NEUROLOGICAL: The patient is oriented to person, place, and time. Cranial nerves are grossly intact. 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 His gait is normal. Weakly positive SLR on the right at 90 degrees. MUSCULOSKELETAL: He has marked limitation in range of motion of the cervical spine, he can lift approximately 20 degrees to the left and to the right he cannot hyperextend or flex more than 20 degrees. He has pain elicited from this, radiates in his left scapula, left lateral arm posteriorly through the deltoid. LABORATORY DATA: H&H is 17.8 and 48.3 with a white count of 5900 and platelet count of 251,000. Electrolytes are normal. Glucose is 135. Cardiac enzymes are negative times 2. Chest x-ray shows post-sternotomy changes from prior CABG. No acute cardiopulmonary disease. EKG shows sinus bradycardia. No acute changes on EKG serially. ASSESSMENT: Atypical chest pain. History of known coronary artery disease, post recent percutaneous transluminal coronary angioplasty of the left anterior descending. Cervical disc disease with chronic pain syndrome, bipolar illness, hypertension, diet-controlled diabetes mellitus, polycythemia. Upon review of HISTORY AND PHYSICAL [id number] ESTRELLITASHIMON RAM his cervical spine CT from December of this year, showing extensive degenerative disc changes at C5-C6 and C6-C7 with osteophyte complexes. My impression is this is noncardiac chest pain probably related to his cervical disc disease. We will ask Dr. Mustafa to consult and see what his recommendations are. Further workup pending clinical course. TRANSINT:[id number] Voice Confirmation ID: [id number] DOCUMENT ID: [id number] YARELI BLAS MD at 2057 CC: [id number] DICTATION DATE: 05/11/18805 EMBEDDER: 05/11/18 0921 DIS IN 05/12/18 [place] [id number] [place] [address]
[~2018-05-10 17:08] MED LIST changes: +ASPIRIN81 MG PO; +DEPAKOTE ER500 MG PO; +LISINOPRIL10 MG PO; +NIFEDIPINE ER30 MG PO
[2018-05-10] MEDS ORDERED: BUSPAR10 MG PO (17:16)
[2018-05-10] MEDS ORDERED: MELATONIN10 M1 PO (17:17)
[2018-05-10] MEDS ORDERED: ZANAFLEX4 MG PO (17:17)
[2018-05-10 17:36] LABS: BASOPHILS 0.5 % (0-2); EOSINOPHILS 1.4 % (0-7); HEMATOCRIT 48.3 % (42.0-54.0); HEMOGLOBIN 17.8 g/dL (13.5-17.5); IMMATURE GRANULOCYTES 0.2 % (0-5); LYMPHOCYTES 31.9 % (15-50); MCH 35.3 pg (26.0-34.0); MCHC 36.9 g/dL (31.0-37.0); MCV 95.8 fL (80.0-100.0); MEAN PLATELET VOLUME 9.8 fL (7.4-10.4); MONOCYTES 4.6 % (2-11); NEUTROPHILS 61.4 % (40-80); PLATELET COUNT 251 10x3/uL (130-400); RBC 5.04 10x6/uL (4.20-6.10); RDW 13.3 % (11.5-14.5); WBC 5.9 10x3/uL (4.8-10.8)
[2018-05-10 17:50] LABS: APTT 27.5 SECONDS (22.8-39.4); INR 0.91 (0.85-1.17); PROTIME 11.9 SECONDS (11.6-15.0)
[2018-05-10 17:55] LABS: ALBUMIN 3.7 g/dL (3.4-5.0); ALKALINE PHOSPHATASE 93 U/L (46-116); ALT (SGPT) 25 U/L (10-68); BILIRUBIN - TOTAL 0.32 mg/dL (0.2-1.3); CALC OSMOLALITY 268 mosm/kg (275-300); CALCIUM 8.7 mg/dL (8.5-10.1); CHLORIDE - SERUM 97 mmol/L (98-107); CREATININE - SERUM 1.5 mg/dL (0.6-1.3); GLUCOSE 221 mg/dL (74-106); POTASSIUM - SERUM 4.5 mmol/L (3.5-5.1); PROTEIN - SERUM 7.3 g/dL (6.4-8.2); SODIUM 129 mmol/L (136-145); UREA NITROGEN 22 mg/dL (7-18); eGFR NON AFRICAN AMERICAN 51 mL/min (90-120)
[2018-05-10 18:06] LABS: CKMB 1.4 U/L (0.0-3.6); CREATINE KINASE 77 UL (21-232); TROPONIN-I < 0.017 ng/mL (0.000-0.060)
[2018-05-10 18:37] VITALS: BP 159/93
[2018-05-10 19:20] VITALS: BP 138/89
[2018-05-10 20:30] VITALS: BP 149/84
[2018-05-10 22:14] VITALS: BP 133/87; Ht 180.3 cm; Wt 101.4 kg
[2018-05-10] MEDS ORDERED: DEPAKOTE500 MG PO (22:30)
[2018-05-10 23:35] VITALS: BP 120/76
[2018-05-11 01:06] LABS: CKMB 1.3 U/L (0.0-3.6); CREATINE KINASE 66 UL (21-232); TROPONIN-I 0.033 ng/mL (0.000-0.060)
[2018-05-11 04:16] VITALS: BP 115/73
[2018-05-11 06:37] LABS: BASOPHILS 0.5 % (0-2); EOSINOPHILS 1.5 % (0-7); HEMATOCRIT 48.5 % (42.0-54.0); HEMOGLOBIN 17.4 g/dL (13.5-17.5); IMMATURE GRANULOCYTES 0.3 % (0-5); LYMPHOCYTES 36.4 % (15-50); MCHC 35.9 g/dL (31.0-37.0); MCV 97.6 fL (80.0-100.0); MEAN PLATELET VOLUME 9.8 fL (7.4-10.4); MONOCYTES 5.7 % (2-11); NEUTROPHILS 55.6 % (40-80); PLATELET COUNT 209 10x3/uL (130-400); RBC 4.97 10x6/uL (4.20-6.10); RDW 13.5 % (11.5-14.5); WBC 6.2 10x3/uL (4.8-10.8)
[2018-05-11 07:08] LABS: CALCIUM 8.4 mg/dL (8.5-10.1); CARBON DIOXIDE 24.9 mmol/L (21.0-32.0); CHLORIDE - SERUM 103 mmol/L (98-107); CKMB 1.4 U/L (0.0-3.6); CREATINE KINASE 68 UL (21-232); POTASSIUM - SERUM 4.8 mmol/L (3.5-5.1); SODIUM 137 mmol/L (136-145); TROPONIN-I < 0.017 ng/mL (0.000-0.060); UREA NITROGEN 18 mg/dL (7-18); eGFR NON AFRICAN AMERICAN 73 mL/min (90-120)
[2018-05-11 07:09] LABS: CALC OSMOLALITY 277 mosm/kg (275-300); CREATININE - SERUM 1.1 mg/dL (0.6-1.3); GLUCOSE 135 mg/dL (74-106)
[2018-05-11 07:49] VITALS: BP 115/48
[2018-05-11 11:03] VITALS: BP 122/52
[2018-05-11 21:56] VITALS: BP 141/81
[2018-05-12 05:42] VITALS: BP 105/74
[2018-05-12 07:47] VITALS: BP 145/80
[2018-05-12 11:00] VITALS: BP 135/94
== END 2018-05-12 11:52 | disposition left against medical advice (07) ==
LOC: D.ER 17:08 → D.EDHOLD 18:38 → D.M2 18:38 → D.EDHOLD 18:38 → OBSVTIME 18:39 → D.M2 19:55
PROVIDERS: Emergency Medicine; Family Medicine
DX: R07.9 Chest pain, unspecified (principal); G89.4 Chronic pain syndrome; I25.10 Atherosclerotic heart disease of native coronary artery without angina pectoris; Z95.1 Presence of aortocoronary bypass graft; Z95.5 Presence of coronary angioplasty implant and graft; M50.20 Other cervical disc displacement, unspecified cervical region; I10 Essential (primary) hypertension; E11.65 Type 2 diabetes mellitus with hyperglycemia; F17.200 Nicotine dependence, unspecified, uncomplicated; D75.1 Secondary polycythemia; F31.9 Bipolar disorder, unspecified